=== PATIENT | female | born 1945 | race Caucasian/White ===

== ENCOUNTER 2018-03-17 20:08 | Inpatient (IN) | payer OTHER ==
[~2018-03-17] VITALS: Ht 165.1 cm; Wt 72.1 kg
[2018-03-18 00:15] VITALS: BP 147/88; PULSE 71; TEMP 36.5; O2SAT 96
[2018-03-18 00:25] VITALS: BP 147/88; PULSE 71; TEMP 36.5; Ht 165.1 cm; Wt 72.1 kg
[2018-03-18] MEDS ORDERED: PANT40TA PO (00:58)
[2018-03-18] MEDS ORDERED: ERGO500037 PO (00:58)
[2018-03-18] MEDS ORDERED: OXYC-57 PO (00:58)
[2018-03-18] MEDS ORDERED: FAMO40TA6 PO (00:58)
[2018-03-18] MEDS ORDERED: LEVO50TA6 PO (00:58)
[2018-03-18] MEDS ORDERED: CYCL10TA6 PO (00:58)
[2018-03-18] MEDS ORDERED: ASPI81TA28 PO (00:58)
[2018-03-18] MEDS ORDERED: NORT25CA PO (00:58)
[2018-03-18] MEDS ORDERED: ADVIN25/60 INH (00:58)
[2018-03-18] MEDS ORDERED: GABA800T PO (00:58)
[2018-03-18] MEDS ORDERED: LISI-729 PO ×2 (00:58→12:45)
[2018-03-18] MEDS ORDERED: VNTHFA/IN INH (00:58)
[2018-03-18] MEDS ORDERED: MELO7.5T5 PO (00:58)
[2018-03-18] MEDS ORDERED: LORA-741 PO (00:58)
[2018-03-18] MEDS ORDERED: DULO60CA44 PO (00:58)
[2018-03-18] MEDS ORDERED: FLX10 (00:58)
[2018-03-18] MEDS ORDERED: MAGNESIUM HYDROXIDE SUSP 30 ML UDC PO PRN (01:45)
[2018-03-18] MEDS ORDERED: NITROGLYCERIN 0.4 MG SL PER TAB CHARGE SL PRN (01:45)
[2018-03-18] MEDS ORDERED: PHARMACIST DISCHARGE MED REC CONSULT PRN (01:45)
[2018-03-18] MEDS ORDERED: ONDANSETRON INJ 2 MG/ML 2 ML VIAL IV PRN (01:45)
[2018-03-18] MEDS ORDERED: ALBUTEROL HFA 8 GM INHALER INH PRN (01:45)
[2018-03-18] MEDS ORDERED: PATIENT'S ALLERGY INFO NEEDS ENTERED SCH (02:15)
[2018-03-18] MEDS ORDERED: ACETAMINOPHEN IV 100 ML IV PRN (02:30)
[2018-03-18] MEDS ORDERED: KETOROLAC TROMETHAMINE 15 MG/ML VIAL IV PRN (02:30)
[2018-03-18] MEDS ORDERED: PNEUMOCOCCAL POLYSACCHARIDES 25 MCG/0.5 ML VIAL/SYR IM. ONE (02:30)
[2018-03-18] MEDS ORDERED: PNEUMOCOCCAL ADMINISTRATION CHARGE ONE (02:30)
--- NOTE | 2018-03-18 02:33 | History and Physical ---
History & Physical Date & Time of Service: Mar 18, 2018 at 02:10 Chief Complaint: Cva, Generalized Weakness Primary Care Physician: No Doctor, Assigned History of Present Illness Source: patient, hospital records Patient is a 72 year old female with a past medical history of chronic lower back pain, hypertension, hypothyroidism, COPD, and anxiety that presents as a direct admission from [facility] for stroke evaluation. The patient was having complaints of confusion, lightheadedness, and dizziness this morning and was told to go to [facility] by her PCP. A CT Head revealed a questionable lacunar infarct and the patient was transferred to [facility] for further evaluation. The patient also states that she has been having blurriness of vision and this is new as well. At her baseline she states she experiences lots of stumbling and bumping into things at home. She denies any headache, diplopia, sensation of spinning, nausea, vomiting, shortness of breath, chest pain, abdominal pain. She states at baseline she has neuropathy in her lower extremities and this is unchanged. The patient was able to walk to her bed and to the bathroom on admission with no observed gait abnormalities. Past Medical/Surgical History Medical Problems: (1) Stroke Family History Noncontributory Social History Smoking Status: Current Every Day Smoker Smokeless Tobacco Use: No Alcohol Use: none Drug Use: none Occupational Status: retired Immunizations History of Influenza Vaccine: Unknown History of Tetanus Vaccine?: Unknown History of Pneumococcal: Unknown History of Hepatitis B Vaccine: Unknown Allergies Coded Allergies: No Known Allergies (Unverified , 03/18/18) Home Medications Scheduled Aspirin (Aspirin Ec), 81 MG PO DAILY Duloxetine Hcl (Cymbalta), 1 CAP PO DAILY Ergocalciferol (Vitamin D 14115 Unit), 1 CAP PO WK Fluticasone Prop/Salmeterol (Advair Diskus 250/50 60 Dose), 1 PUFFS INH BID Gabapentin (Neurontin), 800 MG PO TID Levothyroxine Sodium (Levothyroxine Sodium), 1 TAB PO DAILY Lisinopril (Zestril), 2.5 MG PO DAILY Meloxicam (Mobic), 15 MG PO DAILY Nortriptyline (Pamelor), 25 MG PO HS Pantoprazole (Protonix), 40 MG PO DAILY Scheduled PRN Albuterol Hfa (Ventolin Hfa), 2 PUFFS INH Q6H PRN for PRN Cyclobenzaprine Hcl (Flexeril), 1 TAB PO BID PRN for PRN Lorazepam (Ativan), 0.5 MG PO BID PRN for PRN Oxycodone/Acetaminophen 5MG/325MG (Percocet 5MG/325MG), 1 TABLET PO Q6H PRN for Pain Miscellaneous Medications Cyclobenzaprine HCl (Cyclobenzaprine HCl) Famotidine (Pepcid), 40 MG PO Review of Systems Constitutional: No fever, No chills, No sweats, No fatigue Respiratory: No cough, No sputum, No shortness of breath Cardiovascular: No chest pain Abdomen: No pain, No nausea, No vomiting, No diarrhea Musculoskeletal: + joint pain, No swelling, No calf pain Genitourinary - Female: No dysuria, No urinary frequency, No urinary urgency Neurologic: + weakness, + numbness/tingling, + balance problems, + problem reported (lightheadedness), No memory loss, No vertigo Endocrine: + fatigue Integumentary: No rash, No itch Physical Exam Vital Signs Date Time Temp Pulse Resp B/P (MAP) Pulse Ox O2 Delivery O2 Flow Rate FiO2 03/18/18 00:25 36.5 71 18 147/88 Room Air 96.0 General Appearance: WD/WN, no apparent distress Head: normocephalic, atraumatic Eyes: normal inspection, sclerae normal Neck: supple, no carotid bruits Respiratory/Chest: chest non-tender, lungs clear, no respiratory distress, no accessory muscle use, + decreased breath sounds Cardiovascular: regular rate, rhythm, no edema, no gallop Abdomen/GI: normal bowel sounds, non tender, soft Neurologic/Psych: japanese interpreter II-XII nml as tested, alert, normal mood/affect, oriented x 3, + pertinent finding (PERRL, CN 2-12 grossly intact, Negative pronator drive, No visible gait abnormalities, [id number] normal, overshoot with finger to nose of right hand, speech coherent, A&Ox3) Diagnostics Laboratory Results Results Past 24 Hours Test 03/18/18 00:55 03/18/18 01:45 Range/Units Bedside Glucose 85 70-90 mg/dl Diagnostic Radiology CT Head: 1. Possible small lacunar type infarct anterior limb of the right internal capsule 2. Probable mid microvascular chronic ischemic changes in the cerebral hemisphere white matter 3. 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 Possible small lacunar type infarct anterior limb of the right internal capsule 2. Probable mid microvascular chronic ischemic changes in the cerebral hemisphere white matter 3. No acute intracranial process observed on this unenhanced CT - MRI Brain Combo - CTA Head and Neck - Plavix - Atorvastatin 40mg - Fall Precautions - Neurochecks q4h - Neuro Consult - Lipid Panel - HbA1c Hypertension - Continue home Lisinopril Hypothyroidism - Continue home Synthroid Neuropathy/ Chronic Back Pain - Continue home Gabapentin and Cymbalta - Hold home Flexeril - Hold home Oxycodone - Hold home Meloxicam - IV Tylenol PRN for Pain, Toradol for breakthrough pain Anxiety - Hold home Ativan COPD - Continue home Advair and Albuterol GERD - Continue home Protonix and Pepcid DVT - SCDs Code Status - Full Code Attending addendum: I have physically seen this patient, have supervised the medical residents activities, and agree with the H&P unless as otherwise noted. Assessment and Plan: Small lacunar infarct right internal capsule anterior limb/noted on CT brain [facility]-- The patient will be admitted to telemetry for serial cardiac enzymes, serial EKG's, cardiac rhythm monitoring and a 2-D echocardiogram with Dopplers. Follow The patient will be admitted to telemetry for serial cardiac enzymes, cardiac rhythm monitoring and a 2-D echocardiogram with Dopplers. Follow CVA without TPA protocol. Order MRI brain combo. Order CTA Head and Neck Consult social research assistant, PT, OT, speech therapy, neurology. Check hemoglobin A1c and fasting lipid profile. Discontinue aspirin 81 mg by mouth daily. Start clopidogrel 75 mg p.o. daily. Remainder of orders and notes as noted above. Advanced Directives Existing Advance Directive: Yes Existing Living Will: No Existing Power of Servomechanism Designer: No Resuscitation Status Level 3 - No intubation VTE Prophylaxis Will order VTE Prophylaxis: Yes Resident Tracking Resident Involvement: Resident Care Provided Care Provided: [facility] Medicine
[2018-03-18] MEDS ORDERED: GADAVIST IV PRN (03:30)
[2018-03-18 03:35] VITALS: BP 148/94; PULSE 77; TEMP 36.4; O2SAT 95
[2018-03-18] MEDS: SODIUM CHLORIDE 0.9% 1000ML 1,000 ML IV SCH ×2 (04:02→13:00)
[2018-03-18] MEDS ORDERED: LEVOTHYROXINE 50 MCG TAB PO SCH (06:00)
--- NOTE | 2018-03-18 06:39 | DIAGNOSTIC IMAGING REPORT ---
BRAIN COMBO CLINICAL HISTORY: Stroke mental status change COMPARISON STUDY: No previous studies for comparison. TECHNIQUE: Utilizing a 1.5 Ava magnet and dedicated coil, multiplanar, multiecho imaging of the brain was performed pre and postcontrast administration. IV administration of 8.5 mL of Gadavist contrast was uneventful. FINDINGS: Diffusion-weighted images are negative for an acute ischemic event. Mild mucosal thickening right mastoid air cells. Signal characteristics of the cerebellar as well as cerebral hemispheres otherwise it demonstrate age-related chronic small vessel change as well as atrophy. Ventricular system is midline. Internal artery canals are symmetric. Sella and parasellar regions are unremarkable. Postcontrast images are considered negative for an enhancing lesion. IMPRESSION: Chronic and age-related change. No acute process. Mild mucosal thickening right mastoid air cells. The above report was generated using voice recognition software. It may contain grammatical, syntax or spelling errors. Electronically signed by: Allan Phelps M.D. 03/18/2018 6:38 AM Dictated Date/Time: 03/18/2018 6:34 AM
[2018-03-18 07:10] VITALS: BP 147/90; PULSE 73; TEMP 36.4; O2SAT 96
[2018-03-18 07:30] LABS: HEMOGLOBIN A1C 5.7 % (4.5-5.6)
[2018-03-18] MEDS: GABAPENTIN 800 MG TAB PO SCH ×2 (08:49→14:13)
[2018-03-18] MEDS ORDERED: DULOXETINE HCL 60 MG CAP PO SCH (09:00)
[2018-03-18] MEDS ORDERED: LISINOPRIL 5 MG TAB PO SCH (09:00)
[2018-03-18] MEDS ORDERED: FLUTICASONE/SALMETEROL 250/50 (ADVAIR) 14 PUFF/1 INHALER INH SCH (09:00)
[2018-03-18] MEDS ORDERED: FAMOTIDINE 20 MG TAB PO SCH (09:00)
[2018-03-18] MEDS ORDERED: CLOPIDOGREL BISULFATE 75 MG TAB PO SCH (09:00)
[2018-03-18] MEDS ORDERED: PANTOprazole SOD 40 MG TAB PO SCH (09:00)
[2018-03-18] MEDS ORDERED: ATORVASTATIN 40 MG TAB PO SCH (09:00)
--- NOTE | 2018-03-18 09:01 | ECHOCARDIOGRAM REPORT ---
*NOTICE TO RECEIVING [employer]Y This information is strictly Confidential and protected under [place] law. [place] law prohibits you from making any further disclosure of this information unless further disclosure is expressly permitted by the written consent of the person to whom it pertains or is authorized by law. A general authorization for the release of medical or other information is not sufficient for this purpose. Hospital accepts no responsibility if the information is made available to any other person, INCLUDING THE PATIENT. Interpretation Summary * Name: GERRY BENDER Study Date: 03/18/2018 07:12 AM BP: 148/94 mmHg * Patient Location: C.2T\S\S234\S\1 HR: 77 * : 1945 (M/d/yyyy) Gender: Female Height: 65 in * Age: 72 yrs Ethnicity: [place] Weight: 158 lb * Ordering Physician: Abdullahi Castillo * Performed By: Marium Barriga RDCS * * Reason For Study: Cerebral Ischemia/Embolus * BSA: 1.8 m2 * -- Conclusions -- * There is mild concentric left ventricular hypertrophy. * Left ventricular systolic function is moderate to severely reduced. * There are regional wall motion abnormalities as specified. * The right ventricular systolic function is reduced as assessed by tricuspid annular plane systolic excursion (TAPSE) (TAPSE <1.6 cm). * The left atrium is mildly dilated. * Mild aortic regurgitation. * There is mild mitral annular calcification. * There is moderate mitral regurgitation. * Injection of contrast documented no interatrial shunt. Procedure Details * A complete two-dimensional transthoracic echocardiogram was performed (2D, M-mode, Doppler and color flow Doppler). * A saline contrast injection was performed to assess for cardiac shunting. * The injection was performed through an intravenous line in the left arm. * The attending nurse who injected the saline contrast was Marge Hernandez RN. * A total of 10 cc of agitated saline was given. Left Ventricle * The left ventricle is grossly normal size. * There is mild concentric left ventricular hypertrophy. * Ejection Fraction = 30-35%. * Left ventricular systolic function is moderate to severely reduced. * There are regional wall motion abnormalities as specified. * Severe global hypokinesis with only mild inferior and septal hypokinesis. Right Ventricle * The right ventricle is not well visualized. * The right ventricular systolic function is reduced as assessed by tricuspid annular plane systolic excursion (TAPSE) (TAPSE <1.6 cm). Atria * The left atrium is mildly dilated. * Right atrial size is normal. * Injection of contrast documented no interatrial shunt. Mitral Valve * There is mild mitral annular calcification. * There is moderate mitral regurgitation. Tricuspid Valve * The tricuspid valve is not well visualized, but is grossly normal. * Significant tricuspid regurgitation is absent. Aortic Valve * The aortic valve is normal in structure and function. * The aortic valve is trileaflet. * No hemodynamically significant valvular aortic stenosis. * Mild aortic regurgitation. Pulmonic Valve * The pulmonic valve is not well visualized. * Trace pulmonic valvular regurgitation. Pericardium/Pleural * There is no pericardial effusion. MMode 2D Measurements and Calculations IVSd 1.4 cm IVSs 2.0 cm LVIDd 5.0 cm LVIDs 3.8 cm LVPWd 1.5 cm LVPWs 1.4 cm IVS/LVPW 0.93 FS 24.2 % EDV(Teich) 120.0 ml ESV(Teich) 62.5 ml EF(Teich) 47.9 % EDV(cubed) 127.4 ml ESV(cubed) 55.5 ml EF(cubed) 56.4 % % IVS thick 37.5 % % LVPW thick -8.19 % LV mass(C)d 320.8 grams LV mass(C)dI 179.3 grams/m\S\2 LV mass(C)s 264.2 grams LV mass(C)sI 147.7 grams/m\S\2 SV(Teich) 57.5 ml SI(Teich) 32.1 ml/m\S\2 SV(cubed) 71.9 ml SI(cubed) 40.2 ml/m\S\2 ACS 2.0 cm LA dimension 4.1 cm asc Aorta Diam 3.5 cm LVAd ap4 34.2 cm\S\2 LVLd ap4 8.1 cm EDV(MOD-sp4) 122.4 ml EDV(sp4-el) 122.0 ml LVAs ap4 23.9 cm\S\2 LVLs ap4 7.0 cm ESV(MOD-sp4) 68.0 ml ESV(sp4-el) 68.9 ml EF(MOD-sp4) 44.4 % EF(sp4-el) 43.5 % LVAd ap2 37.1 cm\S\2 LVLd ap2 8.3 cm EDV(MOD-sp2) 135.6 ml EDV(sp2-el) 139.9 ml LVAs ap2 23.9 cm\S\2 LVLs ap2 7.1 cm ESV(MOD-sp2) 65.9 ml ESV(sp2-el) 68.5 ml EF(MOD-sp2) 51.4 % EF(sp2-el) 51.0 % LVLd %diff 2.4 % EDV(MOD-bp) 130.3 ml LVLs %diff 0.63 % ESV(MOD-bp) 67.2 ml EF(MOD-bp) 48.4 % SV(MOD-sp4) 54.4 ml SI(MOD-sp4) 30.4 ml/m\S\2 SV(MOD-sp2) 69.7 ml SI(MOD-sp2) 38.9 ml/m\S\2 SV(MOD-bp) 63.1 ml SI(MOD-bp) 35.3 ml/m\S\2 SV(sp4-el) 53.0 ml SI(sp4-el) 29.6 ml/m\S\2 SV(sp2-el) 71.4 ml SI(sp2-el) 39.9 ml/m\S\2 Doppler Measurements and Calculations MV E max mray 98.9 cm/sec MV dec time 0.14 sec Ao V2 max 104.0 cm/sec Ao max PG 4.3 mmHg Ao max PG (full) 2.1 mmHg AI max mary 338.3 cm/sec AI max PG 45.8 mmHg AI dec slope 110.4 cm/sec\S\2 AI P1/2t 897.5 msec LV V1 max PG 2.2 mmHg LV V1 max 74.7 cm/sec MR max mary 481.4 cm/sec MR max PG 92.7 mmHg MR mean mary 322.5 cm/sec MR mean PG 50.3 mmHg MR VTI 206.0 cm MR PISA 2.0 cm\S\2 MR PISA radius 0.57 cm PA V2 max 71.0 cm/sec PA max PG 2.0 mmHg PI max mary 152.5 cm/sec PI max PG 9.3 mmHg PI dec slope 55.4 cm/sec\S\2 PI P1/2t 805.6 msec
--- NOTE | 2018-03-18 09:57 | Neurology Consultation ---
Neurology Consultation Date of Consultation: Mar 18, 2018. Attending Physician: Issac Black M.D. Primary Care Physician: Brandon Arce M.D. Reason for Consultation: Possible stroke identified at outside institution History of Present Illness Source: patient, hospital records The patient is a 72-year-old female who was transferred from [facility] for a stroke evaluation. She had called her primary care physician yesterday complaining of persistent lightheadedness and difficulty with balance. The patient was prompted to go immediately to the emergency department for further assessment. A CT of the head completed at [facility] suggested a possible lacunar infarct within the anterior limb of the right internal capsule. The patient was subsequently transferred to [facility] in the [facility] for a more extensive stroke evaluation. Upon further questioning of the patient this morning, the patient indicates that she has actually been experiencing a feeling of dizziness that occurs upon standing and an associated feeling of disequilibrium and poor balance which has been present for at least the past year. She does indicate that the dizziness improves within a few seconds of standing. The patient actually denies experiencing any recent or acute change in her neurological status but felt it was time to complain to her primary care physician regarding this issue. She denies headache, diplopia, vertigo, change in speech, difficulty swallowing, or focal weakness. She does have a history of polyneuropathy and some associated paresthesias. She is prescribed Cymbalta and Pamelor. Past medical history also notable for hypertension, COPD, chronic low back pain, history of bowel resection, and anxiety disorder. Family History Family history noncontributory. Social History Smokeless Tobacco Use: No Alcohol Use: none Drug Use: none Occupation Status: retired Allergies Coded Allergies: No Known Allergies (Unverified , 03/18/18) Current Inpatient Medications Current Inpatient Medications Medications (Trade) Dose Ordered Sig/Racquel Route Start Time Stop Time Status Last Admin Dose Admin Sodium Chloride 1,000 ml @ 100 mls/hr Q10H IV 03/18/18 03:00 04/17/18 02:59 03/18/18 04:02 100 MLS/HR Magnesium Hydroxide (Milk Of Magnesia Susp) 30 ml Q12H PRN PO 03/18/18 01:45 04/17/18 01:44 Ondansetron HCl (Zofran Inj) 4 mg Q6H PRN IV 03/18/18 01:45 8/11/18 01:44 Nitroglycerin (Nitrostat Tab) 0.4 mg UD PRN SL 03/18/18 01:45 04/17/18 01:44 Atorvastatin Calcium (Lipitor Tab) 40 mg QAM PO 03/18/18 09:00 04/17/18 08:59 03/18/18 08:50 40 MG Clopidogrel Bisulfate (plAVix TAB) 75 mg QAM PO 03/18/18 09:00 04/17/18 08:59 03/18/18 08:50 75 MG Miscellaneous Information (Pharmacist Discharge Med Rec Consult) 1 ea UD PRN N/A 03/18/18 01:45 04/17/18 01:44 Albuterol (Ventolin Hfa Inhaler) 2 puffs Q6H PRN INH 03/18/18 01:45 04/17/18 01:44 Duloxetine HCl (Cymbalta Cap) 60 mg DAILY PO 03/18/18 09:00 04/17/18 08:59 03/18/18 08:49 60 MG Famotidine (Pepcid Tab) 40 mg DAILY PO 03/18/18 09:00 04/17/18 08:59 03/18/18 08:50 40 MG Salmeterol Xinafoate/ Fluticasone (Advair Diskus 250/50 Inh) 2 puff BID INH 03/18/18 09:00 04/17/18 08:59 03/18/18 08:48 2 PUFF Gabapentin (Neurontin Tab) 800 mg TID PO 03/18/18 09:00 04/17/18 08:59 03/18/18 08:49 800 MG Levothyroxine Sodium (Synthroid Tab) 50 mcg DAILYBB PO 03/18/18 06:00 04/17/18 05:59 03/18/18 05:49 50 MCG Lisinopril (Zestril Tab) 2.5 mg DAILY PO 03/18/18 09:00 04/17/18 08:59 03/18/18 08:49 2.5 MG Nortriptyline HCl (Pamelor Cap) 25 mg HS PO 03/18/18 21:00 04/17/18 20:59 Pantoprazole Sodium (Protonix Tab) 40 mg DAILY PO 03/18/18 09:00 04/17/18 08:59 03/18/18 08:50 40 MG Acetaminophen 100 ml @ 400 mls/hr Q8H PRN IV 03/18/18 02:30 04/17/18 02:29 Ketorolac Tromethamine (Toradol Inj) 15 mg Q6H PRN IV 03/18/18 02:30 03/23/18 02:29 03/18/18 08:55 15 MG Gadobutrol (Gadavist) 7 mmol UD PRN IV 03/18/18 03:30 03/22/18 03:29 Review of Systems Constitutional: No fever chills Eyes: Patient has complained of some blurry vision, otherwise no diplopia or vision loss ENT: No vertigo or tinnitus Neurological: As per history of present illness Cardiovascular: No chest pain or palpitations Respiratory: No cough or shortness of breath Gastrointestinal: History of dumping syndrome, no complaints at this time Psychiatric: History of anxiety as described in the history of present illness A full 10 point review of systems was obtained from this patient with pertinent positives and negatives described in the history of present illness and otherwise listed above. All remaining systems were reviewed and are negative. Physical Exam Vital Signs (Past 24 Hrs): Date Time Temp Pulse Resp B/P (MAP) Pulse Ox O2 Delivery O2 Flow Rate FiO2 03/18/18 07:10 36.4 73 18 147/90 (109) 96 Room Air 03/18/18 03:35 36.4 77 20 148/94 (112) 95 Room Air 03/18/18 00:25 36.5 71 18 147/88 Room Air 96.0 03/18/18 00:15 36.5 71 18 147/88 (107) 96 Room Air 03/18/18 00:15 96 Room Air The patient is a well-developed, well-nourished elderly female. She is sitting comfortably in bed. If she is alert and fully oriented. Recent and remote memory intact. Patient exhibits a normal spontaneous speech pattern and age- appropriate fund of knowledge. Visual ortega full to confrontation. Visual acuity normal. Pupils equal round react to light and accommodation. Eye movements normal. There is no nystagmus. Facial sensation intact. There is no facial weakness or facial droop. Hearing intact. Palate elevates to midline. Shoulder shrug intact. Tongue protrudes to midline. There is a length- dependent deficit to all sensory modalities. Deep tendon reflexes are intact and symmetric although diminished at the Achilles tendons bilaterally. Plantar responses downgoing bilaterally. There is no dysdiadochokinesia or dysmetria of [id number] or heel to eisenberg. Ophthalmoscopic examination reveals normal- appearing optic discs and posterior segments. No papilledema or hemorrhages. Carotid pulses normal bilaterally, no bruits to auscultation. Gait and station normal. Patient exhibits normal muscle strength and tone for all 4 limbs. No atrophy. No abnormal movements observed. Laboratory Results Past 24 Hours: Test 03/18/18 00:55 03/18/18 06:33 03/18/18 09:06 Bedside Glucose 85 mg/dl (70-90) Estimated Average Glucose 117 mg/dl Hemoglobin A1c 5.7 % (4.5-5.6) Imaging I reviewed the images and radiologist's report pertaining to the recently completed brain MRI. This study is negative for acute or subacute stroke. There is evidence of chronic small vessel ischemic disease. Other data: Her recently completed echocardiogram reveals a reduced ejection fraction, 30-35 percent with regional wall motion abnormalities. Impression No evidence of acute or subacute stroke on recently completed brain MRI. Patient reports a history of chronic dizziness with an associated feeling of disequilibrium that has been present for at least the past year and typically triggered by standing up. Her clinical history is not really suggestive of a recent stroke. Chronic peripheral neuropathy of uncertain etiology, possibly related to borderline diabetes mellitus with a slightly elevated hemoglobin A1c. I am uncertain of the clinical significance of this patient's reduced ejection fraction on transthoracic echocardiogram in the context of her neurological assessment. There does not appear to be any evidence of cardioembolic stroke in this patient. Plan I have ordered an EEG for further assessment of her dizziness as there was also some mention of possible confusion although the patient is not really encephalopathic at this time. My clinical suspicion for subclinical seizures is low in this patient. Follow-up with results of CT angiography when available. There is not appear to be an indication to change this patient's antiplatelet therapy. However, Plavix 75 milligrams per day is reasonable for this patient. Additional outpatient evaluation of this patient's peripheral neuropathy may be warranted. Please contact me if I may be of further assistance.
[2018-03-18 10:48] VITALS: BP 150/91; PULSE 83; TEMP 36.7; O2SAT 95
--- NOTE | 2018-03-18 11:01 | EEG Procedure Note ---
EEG Procedure Note Date of Service Mar 18, 2018. Start / End Times Start Time: 9:48 a.m. End Time: 10:08 a.m. Referring Physician Toan Mcintosh MD History Episode of confusion Home Medication List Scheduled Aspirin (Aspirin Ec), 81 MG PO DAILY Duloxetine Hcl (Cymbalta), 1 CAP PO DAILY Ergocalciferol (Vitamin D 55380 Unit), 1 CAP PO WK Fluticasone Prop/Salmeterol (Advair Diskus 250/50 60 Dose), 1 PUFFS INH BID Gabapentin (Neurontin), 800 MG PO TID Levothyroxine Sodium (Levothyroxine Sodium), 1 TAB PO DAILY Lisinopril (Zestril), 2.5 MG PO DAILY Meloxicam (Mobic), 15 MG PO DAILY Nortriptyline (Pamelor), 25 MG PO HS Pantoprazole (Protonix), 40 MG PO DAILY Scheduled PRN Albuterol Hfa (Ventolin Hfa), 2 PUFFS INH Q6H PRN for PRN Cyclobenzaprine Hcl (Flexeril), 1 TAB PO BID PRN for PRN Lorazepam (Ativan), 0.5 MG PO BID PRN for PRN Oxycodone/Acetaminophen 5MG/325MG (Percocet 5MG/325MG), 1 TABLET PO Q6H PRN for Pain Miscellaneous Medications Cyclobenzaprine HCl (Cyclobenzaprine HCl) Famotidine (Pepcid), 40 MG PO Inpatient Medication List Current Inpatient Medications Medications (Trade) Dose Ordered Sig/Racquel Route Start Time Stop Time Status Last Admin Dose Admin Sodium Chloride 1,000 ml @ 100 mls/hr Q10H IV 03/18/18 03:00 04/17/18 02:59 03/18/18 04:02 100 MLS/HR Magnesium Hydroxide (Milk Of Magnesia Susp) 30 ml Q12H PRN PO 03/18/18 01:45 04/17/18 01:44 Ondansetron HCl (Zofran Inj) 4 mg Q6H PRN IV 03/18/18 01:45 04/17/18 01:44 Nitroglycerin (Nitrostat Tab) 0.4 mg UD PRN SL 03/18/18 01:45 04/17/18 01:44 Atorvastatin Calcium (Lipitor Tab) 40 mg QAM PO 03/18/18 09:00 04/17/18 08:59 03/18/18 08:50 40 MG Clopidogrel Bisulfate (plAVix TAB) 75 mg QAM PO 03/18/18 09:00 04/17/18 08:59 03/18/18 08:50 75 MG Miscellaneous Information (Pharmacist Discharge Med Rec Consult) 1 ea UD PRN N/A 03/18/18 01:45 04/17/18 01:44 Albuterol (Ventolin Hfa Inhaler) 2 puffs Q6H PRN INH 03/18/18 01:45 04/17/18 01:44 Duloxetine HCl (Cymbalta Cap) 60 mg DAILY PO 03/18/18 09:00 04/17/18 08:59 03/18/18 08:49 60 MG Famotidine (Pepcid Tab) 40 mg DAILY PO 03/18/18 09:00 04/17/18 08:59 03/18/18 08:50 40 MG Salmeterol Xinafoate/ Fluticasone (Advair Diskus 250/50 Inh) 2 puff BID INH 03/18/18 09:00 04/17/18 08:59 03/18/18 08:48 2 PUFF Gabapentin (Neurontin Tab) 800 mg TID PO 03/18/18 09:00 04/17/18 08:59 03/18/18 08:49 800 MG Levothyroxine Sodium (Synthroid Tab) 50 mcg DAILYBB PO 03/18/18 06:00 04/17/18 05:59 03/18/18 05:49 50 MCG Lisinopril (Zestril Tab) 2.5 mg DAILY PO 03/18/18 09:00 04/17/18 08:59 03/18/18 08:49 2.5 MG Nortriptyline HCl (Pamelor Cap) 25 mg HS PO 03/18/18 21:00 04/17/18 20:59 Pantoprazole Sodium (Protonix Tab) 40 mg DAILY PO 03/18/18 09:00 04/17/18 08:59 03/18/18 08:50 40 MG Acetaminophen 100 ml @ 400 mls/hr Q8H PRN IV 03/18/18 02:30 04/17/18 02:29 Ketorolac Tromethamine (Toradol Inj) 15 mg Q6H PRN IV 03/18/18 02:30 03/23/18 02:29 03/18/18 08:55 15 MG Gadobutrol (Gadavist) 7 mmol UD PRN IV 03/18/18 03:30 03/22/18 03:29 Description This is a 21 electrode EEG with a single channel dedicated to limited EKG. The electrodes were placed in accordance with the International 10-20 system. There is a posterior dominant rhythm of 8-9 hertz which is symmetrically distributed and attenuates with eye opening. There is a normal anterior to posterior organization. Photic stimulation is unremarkable. There is no focal slowing or persistent asymmetries in the background rhythm. No epileptiform abnormalities observed. Interpretation Normal awake EEG demonstrating a normal appearing background rhythm with a frequency of 8-9 hertz. Clinical Correlation This EEG does not provide supportive evidence of encephalopathy or seizure disorder. Further clinical correlation may be needed.
--- NOTE | 2018-03-18 11:59 | DIAGNOSTIC IMAGING REPORT ---
CT ANGIOGRAM OF THE NECK CLINICAL HISTORY: Strokelike symptoms. COMPARISON STUDY: No priors. TECHNIQUE: Following the IV administration of 92 of Optiray 320, CT angiogram of the neck was performed from the aortic arch to the skull base. Images are reviewed in the axial, sagittal, and coronal planes. 3-D MIPS images are created and assessed. IV contrast was administered without complication. All measurements were calculated based on NASCET criteria. A dose lowering technique was utilized adhering to the principles of ALARA. CT DOSE: 438.61 mGy.cm FINDINGS: Thoracic aorta: There is mild atherosclerotic calcification of the imaged thoracic aorta. Visualized portions of the thoracic aorta are normal in caliber. The aortic arch demonstrates standard 3-vessel anatomy. Right carotid arterial system: The right common carotid artery is widely patent, as are the internal and external carotid arteries. Left carotid arterial system: The left common carotid artery is widely patent, as are the internal and external carotid arteries. Vertebral arteries: The vertebral arteries are widely patent bilaterally. The left vertebral artery is dominant. Subclavian arteries: Widely patent bilaterally. Intracranial vasculature: The partially visualized intracranial vessels at the skull base are patent. Jugular veins: Widely patent bilaterally. Brain parenchyma: The visualized brain parenchyma the skull base is within normal limits. Lung apices: Mild emphysematous change is seen at the lung apices. The imaged upper lobe lung parenchyma appears clear. Soft tissues: The visualized pharyngeal soft tissues are normal in appearance noting angiographic phase technique. The oropharyngeal airway appears widely patent. There is a 12 mm low-attenuation nodule in the right thyroid lobe. The salivary glands are normal in appearance. No cervical lymphadenopathy is seen. Skeletal structures: The skeletal structures are osteopenic. The visualized calvarium at the skull base appears intact. The imaged cervical spine is within normal limits noting multilevel spondylosis. IMPRESSION: 1. Unremarkable CT angiogram of the neck. 2. Emphysema. 3. There is a 12 mm low-attenuation nodule in the right thyroid lobe. Follow-up with a nonemergent thyroid ultrasound is recommended. Electronically signed by: Clark Kaur M.D. 03/18/2018 11:58 AM Dictated Date/Time: 03/18/2018 11:53 AM
--- NOTE | 2018-03-18 11:59 | DIAGNOSTIC IMAGING REPORT ---
HEAD ANGIO WITH CONTRAST CLINICAL HISTORY: Stroke Mental status change TECHNIQUE: Transaxial acquisition with multi axial reformatted images COMPARISON STUDY: None FINDINGS: All major structures of the crow of Beck are unremarkable. The vertebral basilar system is unremarkable. Structures anterior middle and posterior cerebral circulation are intact. No major stenotic process or aneurysmal distention is seen. IMPRESSION: Negative study The above report was generated using voice recognition software. It may contain grammatical, syntax or spelling errors. Electronically signed by: Allan Phelps M.D. 03/18/2018 11:58 AM Dictated Date/Time: 03/18/2018 11:52 AM
[2018-03-18] MEDS ORDERED: OPTIRAY 320 IV PRN (12:00)
--- NOTE | 2018-03-18 12:47 | Discharge Instructions ---
Discharge Instructions Date of Service Mar 18, 2018. Admission Reason for Admission: Cva, Generalized Weakness Discharge Discharge Diagnosis / Problem: dizziness, stroke ruled out Discharge Goals Goal(s): Diagnostic testing, Therapeutic intervention Activity Recommendations Activity Limitations: as noted below Lifting Limitations: gradually increase as tolerated . 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 Who to Call and When: Medical Emergencies: If at any time you feel your situation is an emergency, please call 911 immediately. . Non-Emergent Contact Non-Emergency issues call your: Primary Care Provider, Rd Project Manager Call Non-Emergent contact if: temperature is above 101, your pain is not controlled . . "Provider Documentation" section prepared by Patricio Sullivan. .
--- NOTE | 2018-03-18 13:00 | Discharge Summary ---
Discharge Summary Date of Service Mar 18, 2018. Discharge Summary Admission Date: Mar 18, 2018 at 00:31 Discharge Date: Mar 18, 2018 Discharge Disposition: Home Principal Diagnosis: dizziness, chronic systolic heart failure Immunizations: Have You Had Influenza Vaccine: Unknown History of Tetanus Vaccine?: Unknown History of Pneumococcal: Unknown History of Hepatitis B Vaccine: Unknown Medication Reconciliation Changed Medications: Lisinopril (Zestril) 5 Mg Tab 5 MG PO DAILY, #30 TAB 6 Refills (Changed from: 2.5 MG; Refills: ) Continued Medications: Albuterol Hfa (Ventolin Hfa) 200 Puffs/93326 Mcg Aers 2 PUFFS INH Q6H PRN for PRN, #1 INHALER Aspirin (Aspirin Ec) 81 Mg Tab 81 MG PO DAILY Cyclobenzaprine Hcl (Flexeril) 10 Mg Tab 1 TAB PO BID PRN for PRN for 30 Days, #60 TAB Cyclobenzaprine HCl (Cyclobenzaprine HCl) 10 Mg Tab Duloxetine Hcl (Cymbalta) 60 Mg Cap 1 CAP PO DAILY for 90 Days, #90 CAP 3 Refills Ergocalciferol (Vitamin D 97710 Unit) 50,000 Unit Cap 1 CAP PO WK for 28 Days, #4 CAP 5 Refills Famotidine (Pepcid) 40 Mg Tab 40 MG PO, TAB Fluticasone Prop/Salmeterol (Advair Diskus 250/50 60 Dose) 1 Ea Aerp 1 PUFFS INH BID for 90 Days, #3 INHALER 3 Refills Gabapentin (Neurontin) 800 Mg Tab 800 MG PO TID, TAB Levothyroxine Sodium (Levothyroxine Sodium) 50 Mcg Tab 1 TAB PO DAILY for 30 Days, #30 TAB 5 Refills Lorazepam (Ativan) 0.5 Mg Tab 0.5 MG PO BID PRN for PRN, TAB Meloxicam (Mobic) 7.5 Mg Tab 15 MG PO DAILY, TAB Nortriptyline (Pamelor) 25 Mg Cap 25 MG PO HS, CAP Oxycodone/Acetaminophen 5MG/325MG (Percocet 5MG/325MG) Tab 1 TABLET PO Q6H PRN for Pain, TAB PAIN Pantoprazole (Protonix) 40 Mg Tab 40 MG PO DAILY, #30 TAB Discharge Exam Review of Systems: Constitutional: + fever, + chills Respiratory: No cough, No sputum, No shortness of breath Cardiovascular: No chest pain, No orthopnea, No edema Psychiatric: No depression symptoms, No anhedonism Physical Exam: General Appearance: WD/WN, no apparent distress Eyes: normal inspection, sclerae normal Neck: supple, no JVD Respiratory/Chest: chest non-tender, lungs clear, normal breath sounds Cardiovascular: regular rate, rhythm, no murmur Abdomen / GI: normal bowel sounds, non tender, soft Neurologic/Psychiatric: alert, normal reflexes Skin: normal color, warm/dry Hospital Course 72 F transfer from outside hospital with CVA not qualifying for TPA, with a past medical history of chronic lower back pain, hypertension, hypothyroidism, COPD, 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), and anxiety that presents as a direct admission from [facility] for stroke evaluation, this was found to be unwarranted as MRI was negative for stroke and Neurology does not feel symptoms were TIA, incidentally was found to have chronic systolic heart failure and this may account for some symptoms Cerebrovascular Disease with CVA ruled out - CT Head at [facility] had shown possible small lacunar type infarct anterior limb of the right internal capsule - MRI Brain Combo however does not support this as an acute event - CTA Head and Neck, negative - continue aspirin for cad - Neuro Consult does not feel is tia, EEG is negative for seizure Chronic systolic heart failure seems euvolemic, will increase Acosta i and suggest cardiology follow up Hypertension increase Lisinopril for better blood pressure control Hypothyroidism clinically stable on Synthroid, nodule seen on CT, will recommend outpt follow up with u/s Neuropathy/ Chronic Back Pain Gabapentin and Cymbalta - Flexeril, Oxycodone, Meloxicam - IV Tylenol PRN for Pain, Toradol for breakthrough pain Anxiety- Ativan COPD Advair and Albuterol GERD Protonix and Pepcid Code Status - Full Code Total Time Spent: Greater than 30 minutes This includes examination of the patient, discharge planning, medication reconciliation, and communication with other providers. Discharge Instructions Please refer to the electronic Patient Visit Report (Discharge Instructions) for additional information.
[2018-03-18 13:46] VITALS: BP 150/91; PULSE 83; TEMP 36.7; O2SAT 95
[2018-03-18] MEDS ORDERED: NORTRIPTYLINE HCL 25 MG CAP PO SCH (21:00)
== END 2018-03-18 15:08 | disposition home or self-care (01) | DRG 293 ==
LOC: C.2T 03-18 00:31
PROVIDERS: ADMIT Hospitalist; ATTEND Internal Medicine
DX: I11.0 Hypertensive heart disease with heart failure (principal); I50.22 Chronic systolic (congestive) heart failure; E03.9 Hypothyroidism, unspecified; J44.9 Chronic obstructive pulmonary disease, unspecified; Z86.73 Personal history of transient ischemic attack (TIA), and cerebral infarction without residual deficits; F17.200 Nicotine dependence, unspecified, uncomplicated; Z79.82 Long term (current) use of aspirin; F41.9 Anxiety disorder, unspecified; G62.9 Polyneuropathy, unspecified

== ENCOUNTER 2022-06-26 02:30 | Observation (INO) ==
[2022-06-26] MEDS ORDERED: ONDANSETRON INJ 2 MG/ML 2 ML VIAL IV PRN ×2 (10:18→11:33)
--- NOTE | 2022-06-26 10:31 | History & Physical Report ---
Date of Service June 26, 2022 Assessment & Plan (1) SBO (small bowel obstruction): Plan: Multiple surgeries in the past with probable scar tissue causing obstruction. She is still having pain and intermittent nausea but no bilious vomiting. No need for NG tube immediately. Will obtain KUB and consult General Surgery. For now continue with pain medication as needed with attempt to try and avoid narcotics to prevent additional bowel slowing, antiemetics as needed and NPO with ice chips only. (2) Hypothyroidism: Plan: chronic, stable. Cont synthroid per home regimen. (3) COPD (chronic obstructive pulmonary disease): Plan: Lifelong smoker who is still actively smoking and is not interested in quitting at this time. Reports she stopped taking Advair on her own because she felt she was better and didn't need it. There is currently no wheezing and she appears stable. She declines nicotine patch. Smoking cessation advised. (4) Anxiety: Plan: chronic, controlled with Ativan twice daily. Confirmed this in PDMP. (5) GERD (gastroesophageal reflux disease): Plan: severe, she is prescribed omeprazole but doesn't take it. She prefers Pepcid 50mg twice daily. Otherwise stable. (6) DVT prophylaxis: Plan: Full Code confirmed with her on admission. Dispo- to home when able to tolerate PO. Patient is a recent and lives alone. Additionally, she reports taking Percocet regularly, but PDMP reveals she is not prescribed this so it was removed from her home medication list. Admission and Anticipated Discharge Date Admission Date: June 26, 2022 History of Present Illness Chief Complaint: Direct admission for partial SBO Primary Care Provider: Dimple Hicks, This is a 76-year-old female with PMH of COPD, chronic systolic heart failure, hypertension, hypothyroidism Abdominal pain started on since thursday where she had bloating in her abdomen and constipation. She developed severe pain and went to the ER on Thu but was sent home with antibiotics and report that she had a UTI. She denies any UTI symptoms and repeat UA was clear from 06/25 hospital records. Abdominal pain brought her back to the ER yesterday. Pain is generalized but mostly on the left and has a burning quality. Took laxatives yesterday, finally had a BM today and there was pain associated with it. Stool was black in color. Nausea and dry heaving two days ago. She hasn't eaten since Thursday. She denies fevers and reports chills and a dry cough that seems to have resolved. Today she is hungry but still has abdominal pain. She still gets nausea but has not been actively vomiting. Allergies Allergy/AdvReac Type Severity Reaction Status Date / Time No Known Allergies Allergy Unverified 03/18/18 02:23 Home Medications Medication Instructions Recorded Confirmed Type CYCLOBENZAPRINE HCL (FLEXERIL) 10 mg PO BID PRN PRN 30 days #60 03/18/18 06/26/22 History tabs DULOXETINE HCL (CYMBALTA) 60 mg PO DAILY 90 days #90 caps 03/18/18 06/26/22 History ERGOCALCIFEROL (VITAMIN D 42517 1 cap PO JACOB@0900 28 days #4 caps 03/18/18 06/26/22 History UNIT) Famotidine (Pepcid) 40 mg PO BID #0 tabs 03/18/18 06/26/22 History Gabapentin (Neurontin) 800 mg PO TID #0 tabs 03/18/18 06/26/22 History LEVOTHYROXINE SODIUM 50 mcg PO DAILYBB 30 days #30 tabs 03/18/18 06/26/22 History LORAZEPAM (ATIVAN) 0.5 mg PO BID PRN PRN #0 tabs 03/18/18 06/26/22 History Meloxicam (Mobic) 15 mg PO DAILY #0 tabs 03/18/18 06/26/22 History ferrous sulfate 325 mg (65 mg 325 mg PO BID 06/26/22 06/26/22 History iron) tablet (FeroSul) furosemide 40 mg tablet (Lasix) 40 mg PO DAILY PRN SWELLING 06/26/22 06/26/22 History rosuvastatin 20 mg tablet 20 mg PO DAILY 06/26/22 06/26/22 History Past Med/Surg History Medical History (Updated 06/26/22 @ 11:40 by Bushra Hewitt DO) Anemia Anxiety BPPV (benign paroxysmal positional vertigo) Chronic systolic (congestive) heart failure COPD (chronic obstructive pulmonary disease) Dyslipidemia GERD (gastroesophageal reflux disease) History of hepatitis C Hypertension Hypothyroidism Osteoporosis Seasonal allergic rhinitis Surgical History History of partial gastrectomy S/P appy S/P cholecystectomy Status post hernia repair Family History Father Myocardial infarction Sister Brain hemorrhage due to vascular malformation Brother Cancer Mother Cancer Social History Smoking Status: Current every day smoker Tobacco Type: Cigarettes Cigarettes Per Day: 20; Hx Alcohol Use: No (h/o heavy drinking, quit 17 yrs ago) Hx Substance Use: No Preferred Language: [place]ill[place] marital status: / Current Living Situation: Alone current occupational status: retired Review of Systems Review of Systems: All systems were reviewed and negative except as indicated in HPI above. Physical Exam Physical Exam: CONSTITUTIONAL: thin, vitals as above, generally well- appearing, NAD EYES: pupils are round, dilated and equal and reactive bilaterally, normal conjunctivae, no scleral icterus ENT: external ear and nose normal, oropharynx clear NECK: trachea midline RESPIRATORY: clear to auscultation bilaterally, no crackles, rales or wheezes, normal respiratory effort CARDIOVASCULAR: regular rate and rhythm, S1 and 2 heard without murmurs, gallop s or rubs, no JVD, no peripheral edema GASTROINTESTINAL: hypoactive BS, soft, diffusely TTP, +guarding. MUSCULOSKELETAL: strength 5/5 throughout, head is normocephalic and atraumatic SKIN: warm and dry NEUROLOGIC: CN 2-12 grossly intact, no sensory deficit, normal cognition, normal speech, no tremor PSYCHIATRIC: alert cooperative and oriented to person, place and time. Results & Data Results & Data ([facility]) Laboratory Results Short CBC 06/26/22 Range/Units 10:29 WBC 6.08 (4.8-10.8) K/ul Hgb 12.8 (12.0-16.0) g/dl Hct 37.3 (34.1-44.9) % Plt Count 199 (130-400) K/uL BMP 06/26/22 10:29 Sodium 137 Potassium 3.4 L Chloride 107 Carbon Dioxide 23 BUN 16 Creatinine 0.75 Glucose 78 Calcium 8.1 L Liver Function 06/26/22 Range/Units 10:29 Total Bilirubin 0.5 (0.2-1.0) mg/dl AST 23 (13-39) U/L ALT 13 (7-52) U/L Alkaline Phosphatase 70 (34-104) U/L Albumin 2.9 L (3.4-5.0) gm/dl Code Status & VTE Plan VTE Prophylaxis Plan VTE Prophylaxis will be ordered: Yes
[2022-06-26 10:44] LABS: Basophils % (auto) 1.6 %; Eosinophils # (auto) 0.27 K/uL (0-0.50); Eosinophils % (auto) 4.4 %; Hematocrit (blood only) 37.3 % (34.1-44.9); Hemoglobin 12.8 g/dl (12.0-16.0); Immature Granulocytes # (auto) 0.01 K/uL (0.00-0.02); Immature Granulocytes % (auto) 0.2 %; Lymphocytes # (auto) 1.16 K/uL (1.2-3.4); Lymphocytes % (auto) 19.1 %; Mean Corpuscular Hemoglobin 32.7 pg (25.0-34.0); Mean Corpuscular Hgb Conc 34.3 g/dL (32.0-36.0); Mean Corpuscular Volume 95.4 fL (80.0-100.0); Mean Platelet Volume 10.4 fL (9.4-12.3); Monocytes # (auto) 0.48 K/uL (0.24-0.82); Monocytes % (auto) 7.9 %; Neutrophils # (auto) 4.06 K/uL (1.4-6.5); Neutrophils % (auto) 66.8 %; Platelet Count 199 K/uL (130-400); RDW Coefficient of Variation 13.6 % (11.5-14.5); RDW Standard Deviation 47.8 fL (36.4-46.3); Red Blood Count 3.91 M/uL (3.93-5.22); White Blood Count 6.08 K/ul (4.8-10.8)
[2022-06-26 11:11] LABS: Alanine Aminotransferase 13 U/L (7-52); Albumin Globulin Ratio 1.1 (0.9-2); Albumin Level 2.9 gm/dl (3.4-5.0); Alkaline Phosphatase 70 U/L (34-104); Anion Gap 7 (3-11); Aspartate Aminotransferase 23 U/L (13-39); BUN Creatinine Ratio 21.3 (10-20); Bilirubin,Total 0.5 mg/dl (0.2-1.0); Blood Urea Nitrogen 16 mg/dl (6-23); Calcium 8.1 mg/dl (8.5-10.1); Carbon Dioxide 23 mmol/L (21-32); Chloride 107 mmol/L (98-107); Est GFR (African American) 89.7 ml/min; Est GFR (Non-African American) 77.4 ml/min; Globulin 2.7 gm/dl (2.5-4.0); Glucose 78 mg/dl (70-99(Fasting)); Potassium 3.4 mmol/L (3.5-5.1); Sodium 137 mmol/L (136-145); Total Protein 5.6 gm/dl (6.0-8.3)
--- NOTE | 2022-06-26 12:24 | XRay Report ---
XR chest 1V portable HISTORY: 76 years-old Female cough, smoker acute cough COMPARISON: KUB of same day, chest radiograph 06/25/2022 TECHNIQUE: AP view of the chest FINDINGS: Cardiac silhouette is enlarged. Loop recorder device. No pneumothorax, large pleural effusion or loba r airspace consolidation. Chronic interstitial coarsening of the lung bases. Degenerative changes of the shoulders and spine. IMPRESSION: Cardiomegaly without acute process. ACT 112: Negative or not required by law. The above report was generated using voice recognition software. It may contain grammatical, syntax o r spelling errors. Electronically signed by: Abdullahi Nino M.D. 06/26/2022 12:22 PM
--- NOTE | 2022-06-26 12:33 | Surgery Consultation ---
Date of Consultation June 26, 2022 Assessment & Plan (1) SBO (small bowel obstruction): Plan 76-year-old female with history of multiple abdominal surgeries initially presented to [facility] emergency room on 06/21/2022 with complaint of abdominal pain and then again on 06/25/2022 with persistent abdominal pain. She had a CT scan of the abdomen and pelvis showing partial small bowel obstruction. She was transferred to [facility] for further management as there was no s urgeon available at [facility] if she were to need any surgical intervention. KUB today is pending. She states she had a bowel movement this morning but still having some cramping abdominal pain. Abdominal exam is soft with tenderness in the left abdomen. No peritonitis, rigidity or guarding. Plan: No acute surgical intervention required at this time. Would continue conservative measures with bowel rest, IV fluids, pain management as needed, antiemetics as needed. Encourage patient to get out of bed to chair and ambulate to help GI motility. If she has not passed gas by tomorrow would order a small bowel follow-through to further evaluate. She would likely need bowel regimen given her constipation for the last 4 weeks. Continue current medical management Dr. King has seen and examined patient, please see addendum for further recommendation/plan. Supervising Physician Co-Signing Physician Notes I have seen and examined the patient personally and agree with the above assessment plan. This is a transfer patient from an outside hospital which was affected without any input from surgery. She has extensive medical and surgical history. She is had at least 8-10 abdominal surgeries including multiple mesh hernia repairs following a partial gastrectomy and small bowel resection for ulcer disease in the past. She is a CT scan demonstrating what appears to be a partial small bowel obstruction. She did have a bowel movement this morning. She is not in extremis. Thirty not seem to be any surgical indications at this time. We will observe her for now with bowel rest and IV fluid resuscitation. If she would need surgery, she would most likely need to be transferred to a tertiary care center given the extensive medical and surgical history. We will observe for now with serial exams. History of Present Illness Reason for Consultation: SBO Requesting Physician: Bushra Hewitt DO Attending Physician: Bushra Hewitt DO History of Present Illness Marie is a 76 year-old female who was transferred from [facility] for partial SBO. She states she started having some abdominal discomfort and issues with bowel movements 4 weeks ago. States on Thursday she had abdominal pain and presented to ED and told she had UTI. Pain persisted and presented back to [facility] ED yesterday and had a CT scan of abdomen and pelvis showing partial sbo as well as some mild to moderate free fluid. She states she has had a bowel movement this morning which hurt and looked dark in nature but is feeling slightly better since that bowel movement. She has had multiple abdominal surgeries including appendectomy, partial gastrectomy and small bowel resection for bleeding peptic ulcer, open cholecystectomy, abdominal hernia repair with mesh and complications of mesh. Last colonoscopy was a few years ago. Polyps seen. Not on a regular bowel regimen. Allergies Allergy/AdvReac Type Severity Reaction Status Date / Time No Known Allergies Allergy Unverified 03/18/18 02:23 Home Medications Medication Instructions Recorded Confirmed Type cyclobenzaprine 10 mg tablet 10 mg PO BID PRN muscle spasm 06/26/22 06/26/22 History duloxetine 60 mg capsule,delayed 60 mg PO DAILY 06/26/22 06/26/22 History release ergocalciferol (vitamin D2) 1,250 50,000 unit PO JACOB@0900 06/26/22 06/26/22 History mcg (50,000 unit) capsule (Vitamin D2) famotidine 40 mg tablet 40 mg PO BID 06/26/22 06/26/22 History ferrous sulfate 325 mg (65 mg 325 mg PO BID 06/26/22 06/26/22 History iron) tablet (FeroSul) furosemide 40 mg tablet (Lasix) 40 mg PO DAILY PRN SWELLING 06/26/22 06/26/22 History gabapentin 800 mg tablet 800 mg PO TID 06/26/22 06/26/22 History levothyroxine 50 mcg tablet 50 mcg PO DAILYBB 06/26/22 06/26/22 History lorazepam 0.5 mg tablet 0.5 mg PO BID PRN Anxiety 06/26/22 06/26/22 History rosuvastatin 20 mg tablet 20 mg PO DAILY 06/26/22 06/26/22 History Patient History Medical History (Updated 06/26/22 @ 11:40 by Bushra Hewitt DO) Anemia Anxiety BPPV (benign paroxysmal positional vertigo) Chronic systolic (congestive) heart failure COPD (chronic obstructive pulmonary disease) Dyslipidemia GERD (gastroesophageal reflux disease) History of hepatitis C Hypertension Hypothyroidism Osteoporosis Seasonal allergic rhinitis Surgical History History of partial gastrectomy S/P appy S/P cholecystectomy Status post hernia repair Family History Father Myocardial infarction Sister Brain hemorrhage due to vascular malformation Brother Cancer Mother Cancer Social History Smoking Status: Current every day smoker Tobacco Type: Cigarettes Cigarettes Per Day: 20; Hx Alcohol Use: No (h/o heavy drinking, quit 17 yrs ago) Hx Substance Use: No Preferred Language: Iraqi Release Specialist Required: No Beliefs That Will Affect Care: None marital status: / Current Living Situation: Alone current occupational status: retired Feels Safe at Home: Yes Assistive Devices: Cane Physical Exam Constitutional: WD/WN, vitals as above cooperative and comfortable; no acute distress and not ill appearing Neck: normal visual inspection and trachea midline Respiratory: normal respiratory effort, lungs clear to auscultation Gastrointestinal (Abdomen): Inspection/Auscultation: abdomen normal to insp ection and + abdominal surgical scar (midline laparotomy scar); abdomen not distended Percussion/Palpation: + abdomen tender (left abdomen, mostly upper abdomen) and abdomen soft; no guarding and abdomen not rigid Skin: no rashes, warm and dry Psychiatric: A+Ox3, euthymic affect Results & Data ([facility]) Vital Signs (Past 12 Hours) Vital Signs Temp Pulse Resp BP Pulse Ox O2 Del Method 06/26/22 10:00 36.6 C 84 18 122/76 97 Room Air Laboratory Results 06/26/22 06/26/22 06/26/22 Range/Units 11:50 10:29 10:29 WBC 6.08 (4.8-10.8) K/ul RBC 3.91 L (3.93-5.22) M/uL Hgb 12.8 (12.0-16.0) g/dl Hct 37.3 (34.1-44.9) % MCV 95.4 (80.0-100.0) fL MCH 32.7 (25.0-34.0) pg MCHC 34.3 (32.0-36.0) g/dL RDW Std Deviation 47.8 H (36.4-46.3) fL RDW Coeff of Lindsey 13.6 (11.5-14.5) % Plt Count 199 (130-400) K/uL MPV 10.4 (9.4-12.3) fL Immature Gran % (Auto) 0.2 % Neut % (Auto) 66.8 % Lymph % (Auto) 19.1 % [place] % (Auto) 7.9 % Eos % (Auto) 4.4 % Baso % (Auto) 1.6 % Neut # (Auto) 4.06 (1.4-6.5) K/uL Lymph # (Auto) 1.16 L (1.2-3.4) K/uL [place] # (Auto) 0.48 (0.24-0.82) K/uL Eos # (Auto) 0.27 (0-0.50) K/uL Baso # (Auto) 0.10 (0-0.2) K/uL Immature Gran # (Auto) 0.01 (0.00-0.02) K/uL Sodium 137 (136-145) mmol/L Potassium 3.4 L (3.5-5.1) mmol/L Chloride 107 (98-107) mmol/L Carbon Dioxide 23 (21-32) mmol/L Anion Gap 7 (3-11) BUN 16 (6-23) mg/dl Creatinine 0.75 (0.6-1.2) mg/dl Est Cr Clr Drug Dosing Not Reportable Est GFR ( Amer) 89.7 ml/min Est GFR (Non-Af Amer) 77.4 ml/min BUN/Creatinine Ratio 21.3 H (10-20) Glucose 78 (70-99(Fasting)) mg/dl Calcium 8.1 L (8.5-10.1) mg/dl Total Bilirubin 0.5 (0.2-1.0) mg/dl AST 23 (13-39) U/L ALT 13 (7-52) U/L Alkaline Phosphatase 70 (34-104) U/L Total Protein 5.6 L (6.0-8.3) gm/dl Albumin 2.9 L (3.4-5.0) gm/dl Globulin 2.7 (2.5-4.0) gm/dl Albumin/Globulin Ratio 1.1 (0.9-2) SARS-CoV-2, RNA, NAAT Pending Diagnostic Findings Outpatient CT abd/pelvis with IV contrast 06/25/[address] scan of abdomen pelvis with contrast at [facility] showed dilatation of the small bowel with probable transition point identified in the midepigastrium. Small to moderate amount of free fluid in the abdomen and pelvis increased since prior CTA on 06/21/2022. There is some fecalization within the small bowel loop at the level of the transition point.
--- NOTE | 2022-06-26 13:06 | XRay Report ---
KUB HISTORY: Small bowel obstruction. Follow-up. COMPARISON: Outside hospital abdomen and pelvis CT 06/25/2022. FINDINGS: Mildly dilated gas-filled loop of small bowel within the midabdomen. No renal calculi. No ureteral calculi. No pneumoperitoneum or pneumatosis. Surgical clips within the epigastric region. Th e visualized lung bases appear clear. Contrast within the urinary system due to the recent CT examina tion. IMPRESSION: No change in the mildly dilated gas-filled loop of small bowel within the midabdomen likely correspon ding to the patient's known small bowel obstruction. ACT 112: Negative or not required by law. Electronically signed by: Freddy Vazquez M.D. 06/26/2022 1:04 PM
[2022-06-26] MEDS: SODIUM CHLORIDE 0.9% 1000ML 1,000 ML IV SCH (13:48)
[2022-06-26] MEDS ORDERED: CYCLOBENZAPRINE HCL 10 MG TAB PO PRN (14:21)
[2022-06-26] MEDS ORDERED: PNEUMOCOCCAL POLYSACCHARIDES 25 MCG/0.5 ML VIAL/SYR IM ONE (14:51)
--- NOTE | 2022-06-26 15:00 | Electrocardiogram Report ---
Test Reason : Blood Pressure : / mmHG Vent. Rate : 084 BPM Atrial Rate : 084 BPM P-R Int : 208 ms QRS Dur : 162 ms QT Int : 478 ms P-R-T Axes : 000 -28 -16 degrees QTc Int : 564 ms Normal sinus rhythm Right bundle branch block Abnormal ECG No previous ECGs available Confirmed by Eddie Medrano ([id number]) on 06/26/2022 3:00:23 PM Referred By: Vinh Jones Confirmed By:Eddie Medrano
[2022-06-26] MEDS: GABAPENTIN 800 MG TAB PO SCH ×2 (15:22→20:00)
[2022-06-26] MEDS: ACETAMINOPHEN 325 MG TAB PO PRN (18:44)
[2022-06-26] MEDS: LORazepam 0.5 MG TAB PO PRN (18:47)
[2022-06-26] MEDS: FAMOTIDINE 40 MG TABLET PO SCH (20:00)
[2022-06-26] MEDS: NICOTINE 21 MG/24 HR TDSY TD SCH (21:40)
[2022-06-27] MEDS: SODIUM CHLORIDE 0.9% 1000ML 1,000 ML IV SCH (02:22)
[2022-06-27] MEDS: LEVOTHYROXINE SODIUM 50 MCG TABLET PO SCH (06:02)
[2022-06-27] MEDS: ACETAMINOPHEN 325 MG TAB PO PRN (08:41)
[2022-06-27] MEDS: LORazepam 0.5 MG TAB PO PRN ×2 (08:42→20:18)
[2022-06-27] MEDS: ROSUVASTATIN CALCIUM 20 MG TAB PO SCH (08:43)
[2022-06-27] MEDS: DULoxetine HCL 60 MG CAP PO SCH (08:43)
[2022-06-27] MEDS: FAMOTIDINE 40 MG TABLET PO SCH ×2 (08:43→20:18)
[2022-06-27] MEDS: GABAPENTIN 800 MG TAB PO SCH ×3 (08:43→20:18)
[2022-06-27] MEDS: NICOTINE 21 MG/24 HR TDSY TD SCH (08:43)
[2022-06-27] MEDS ORDERED: MoRPHine SULFATE 2 MG/ML CARP IV STA (08:51)
[2022-06-27 09:44] LABS: Basophils % (auto) 1.7 %; Eosinophils # (auto) 0.22 K/uL (0-0.50); Eosinophils % (auto) 3.8 %; Hematocrit (blood only) 36.6 % (34.1-44.9); Hemoglobin 12.4 g/dl (12.0-16.0); Immature Granulocytes # (auto) 0.02 K/uL (0.00-0.02); Immature Granulocytes % (auto) 0.3 %; Lymphocytes # (auto) 1.26 K/uL (1.2-3.4); Lymphocytes % (auto) 21.7 %; Mean Corpuscular Hemoglobin 32.6 pg (25.0-34.0); Mean Corpuscular Hgb Conc 33.9 g/dL (32.0-36.0); Mean Corpuscular Volume 96.3 fL (80.0-100.0); Mean Platelet Volume 10.6 fL (9.4-12.3); Monocytes # (auto) 0.35 K/uL (0.24-0.82); Neutrophils # (auto) 3.85 K/uL (1.4-6.5); Neutrophils % (auto) 66.5 %; Platelet Count 189 K/uL (130-400); RDW Coefficient of Variation 13.6 % (11.5-14.5); RDW Standard Deviation 48.4 fL (36.4-46.3)
--- NOTE | 2022-06-27 10:02 | Surgery Progress Note ---
Date of Service June 27, 2022 Assessment & Plan (1) SBO (small bowel obstruction): Plan 76-year-old female with history of multiple abdominal surgeries initially presented to [facility] emergency room on 06/21/2022 with complaint of abdominal pain and then again on 06/25/2022 with persistent abdominal pain. She had a CT scan of the abdomen and pelvis showing partial small bowel obstruction. She was transferred to [facility] for further management as there was no surgeon available at [facility] if she were to need any surgical intervention. 06/27/2022: having abdominal pain, not acute distress and hemodynamically stable but looks uncomfortable exam without peritonitis but some voluntary guarding only small amount of flatus this am Plan: Stat labs including lactic acid stat KUB await results of labs and imaging, if wnl will order SBFT. She might need bowel regimen given constipation and this could be causing her abdominal cramping pain as well If lactic acid elevated or her pain increases and is uncontrolled she would need transferred to tertiary center given her complex abdominal surgical history including partial gastrectomy and small bowel resection, hernia repair with large mesh and mesh complications. Dr. Mota covering this weekend Dr. King has seen and examined patient, agrees with above Admission and Anticipated Discharge Date Admission Date: June 26, 2022 Supervising Physician Co-Signing Physician Notes I have seen and examined the patient personally and agree with the above assessment and plan. She is having some more pain this morning. Her labs are normal. Lactic acid is normal. We will obtain an upper GI with small-bowel follow-through. Continue conservative measures for now. Subjective States she is not feeling well this morning Having abdominal cramping pain similar to prior episodes Past small little flatus about an hour ago No bowel movement Physical Exam Constitutional: + frail appearing; no acute distress and not ill appearing She is not in any acute distress but does look uncomfortable at this time due to pain. Nurse is about ready to administer morphine upon examination. Respiratory: normal respiratory effort; no respiratory distress Gastrointestinal (Abdomen): Inspection/Auscultation: abdomen normal to inspection; abdomen not distended Percussion/Palpation: + abdomen tender, + guarding (Voluntary guarding of the upper abdomen, No peritonitis) and abdomen soft; abdomen not rigid and abdomen not firm Skin: no rashes, warm and dry Psychiatric: Orientation: alert and oriented x 3 Results & Data ([facility]) Vital Signs (Past 12 Hours) Vital Signs Temp Pulse Resp BP Pulse Ox O2 Del Method 06/27/22 08:19 36.4 C L 85 18 133/76 98 Room Air Laboratory Results 06/27/22 06/27/22 06/27/22 Range/Units 09:12 09:12 09:12 WBC 5.80 (4.8-10.8) K/ul RBC 3.80 L (3.93-5.22) M/uL Hgb 12.4 (12.0-16.0) g/dl Hct 36.6 (34.1-44.9) % MCV 96.3 (80.0-100.0) fL MCH 32.6 (25.0-34.0) pg MCHC 33.9 (32.0-36.0) g/dL RDW Std Deviation 48.4 H (36.4-46.3) fL RDW Coeff of [place] 13.6 (11.5-14.5) % Plt Count 189 (130-400) K/uL MPV 10.6 (9.4-12.3) fL Immature Gran % (Auto) 0.3 % Neut % (Auto) 66.5 % Lymph % (Auto) 21.7 % [place] % (Auto) 6.0 % Eos % (Auto) 3.8 % Baso % (Auto) 1.7 % Neut # (Auto) 3.85 (1.4-6.5) K/uL Lymph # (Auto) 1.26 (1.2-3.4) K/uL [place] # (Auto) 0.35 (0.24-0.82) K/uL Eos # (Auto) 0.22 (0-0.50) K/uL Baso # (Auto) 0.10 (0-0.2) K/uL Immature Gran # (Auto) 0.02 (0.00-0.02) K/uL Sodium Pending (136-145) mmol/L Potassium Pending (3.5-5.1) mmol/L Chloride Pending (98-107) mmol/L Carbon Dioxide Pending (21-32) mmol/L Anion Gap Pending (3-11) BUN Pending (6-23) mg/dl Creatinine Pending (0.6-1.2) mg/dl Est Cr Clr Drug Dosing Pending Est GFR ( Amer) Pending ml/min Est GFR (Non-Af Amer) Pending ml/min BUN/Creatinine Ratio Pending (10-20) Glucose Pending (70-99(Fasting)) mg/dl Lactate Pending (0.4-2.0) mmol/L Calcium Pending (8.5-10.1) mg/dl Total Bilirubin (0.2-1.0) mg/dl AST (13-39) U/L ALT (7-52) U/L Alkaline Phosphatase (34-104) U/L Total Protein (6.0-8.3) gm/dl Albumin (3.4-5.0) gm/dl Globulin (2.5-4.0) gm/dl Albumin/Globulin Ratio (0.9-2) SARS-CoV-2, RNA, NAAT (NEGATIVE) 06/26/22 06/26/22 06/26/22 Range/Units 13:56 11:50 10:29 WBC (4.8-10.8) K/ul RBC (3.93-5.22) M/uL Hgb (12.0-16.0) g/dl Hct (34.1-44.9) % MCV (80.0-100.0) fL MCH (25.0-34.0) pg MCHC (32.0-36.0) g/dL RDW Std Deviation (36.4-46.3) fL RDW Coeff of Lindsey (11.5-14.5) % Plt Count (130-400) K/uL MPV (9.4-12.3) fL Immature Gran % (Auto) % Neut % (Auto) % Lymph % (Auto) % [place] % (Auto) % Eos % (Auto) % Baso % (Auto) % Neut # (Auto) (1.4-6.5) K/uL Lymph # (Auto) (1.2-3.4) K/uL [place] # (Auto) (0.24-0.82) K/uL Eos # (Auto) (0-0.50) K/uL Baso # (Auto) (0-0.2) K/uL Immature Gran # (Auto) (0.00-0.02) K/uL Sodium 137 (136-145) mmol/L Potassium 3.4 L (3.5-5.1) mmol/L Chloride 107 (98-107) mmol/L Carbon Dioxide 23 (21-32) mmol/L Anion Gap 7 (3-11) BUN 16 (6-23) mg/dl Creatinine 0.75 (0.6-1.2) mg/dl Est Cr Clr Drug Dosing Not Reportable Est GFR ( Amer) 89.7 ml/min Est GFR (Non-Af Amer) 77.4 ml/min BUN/Creatinine Ratio 21.3 H (10-20) Glucose 78 (70-99(Fasting)) mg/dl Lactate 0.7 (0.4-2.0) mmol/L Calcium 8.1 L (8.5-10.1) mg/dl Total Bilirubin 0.5 (0.2-1.0) mg/dl AST 23 (13-39) U/L ALT 13 (7-52) U/L Alkaline Phosphatase 70 (34-104) U/L Total Protein 5.6 L (6.0-8.3) gm/dl Albumin 2.9 L (3.4-5.0) gm/dl Globulin 2.7 (2.5-4.0) gm/dl Albumin/Globulin Ratio 1.1 (0.9-2) SARS-CoV-2, RNA, NAAT NEGATIVE (NEGATIVE) 06/26/22 Range/Units 10:29 WBC 6.08 (4.8-10.8) K/ul RBC 3.91 L (3.93-5.22) M/uL Hgb 12.8 (12.0-16.0) g/dl Hct 37.3 (34.1-44.9) % MCV 95.4 (80.0-100.0) fL MCH 32.7 (25.0-34.0) pg MCHC 34.3 (32.0-36.0) g/dL RDW Std Deviation 47.8 H (36.4-46.3) fL RDW Coeff of [place] 13.6 (11.5-14.5) % Plt Count 199 (130-400) K/uL MPV 10.4 (9.4-12.3) fL Immature Gran % (Auto) 0.2 % Neut % (Auto) 66.8 % Lymph % (Auto) 19.1 % [place] % (Auto) 7.9 % Eos % (Auto) 4.4 % Baso % (Auto) 1.6 % Neut # (Auto) 4.06 (1.4-6.5) K/uL Lymph # (Auto) 1.16 L (1.2-3.4) K/uL [place] # (Auto) 0.48 (0.24-0.82) K/uL Eos # (Auto) 0.27 (0-0.50) K/uL Baso # (Auto) 0.10 (0-0.2) K/uL Immature Gran # (Auto) 0.01 (0.00-0.02) K/uL Sodium (136-145) mmol/L Potassium (3.5-5.1) mmol/L Chloride (98-107) mmol/L Carbon Dioxide (21-32) mmol/L Anion Gap (3-11) BUN (6-23) mg/dl Creatinine (0.6-1.2) mg/dl Est Cr Clr Drug Dosing Est GFR ( Amer) ml/min Est GFR (Non-Af Amer) ml/min BUN/Creatinine Ratio (10-20) Glucose (70-99(Fasting)) mg/dl Lactate (0.4-2.0) mmol/L Calcium (8.5-10.1) mg/dl Total Bilirubin (0.2-1.0) mg/dl AST (13-39) U/L ALT (7-52) U/L Alkaline Phosphatase (34-104) U/L Total Protein (6.0-8.3) gm/dl Albumin (3.4-5.0) gm/dl Globulin (2.5-4.0) gm/dl Albumin/Globulin Ratio (0.9-2) SARS-CoV-2, RNA, NAAT (NEGATIVE)
--- NOTE | 2022-06-27 10:03 | XRay Report ---
KUB HISTORY: Small bowel obstruction. Follow-up. COMPARISON: KUB 06/26/2022. FINDINGS: Mildly dilated gas-filled loop of small bowel within the left mid abdomen again noted. This measures up to 3.9 cm in diameter. Surgical clips again noted within the epigastric region. No renal calculi. No ureteral calculi. No pneumoperitoneum or pneumatosis. IMPRESSION: No change in the mildly dilated gas-filled loop of small bowel within the left midabdomen likely juan pablo esponding to the patient's known small bowel obstruction. ACT 112: Negative or not required by law. Electronically signed by: Freddy Vazquez M.D. 06/27/2022 10:01 AM
[2022-06-27 10:22] LABS: BUN Creatinine Ratio 18.9 (10-20); Calcium 8.5 mg/dl (8.5-10.1); Creatinine Clr Calc Pharmacy 77.1 ml/min; Est GFR (African American) 106.9 ml/min; Est GFR (Non-African American) 92.2 ml/min; Potassium 3.5 mmol/L (3.5-5.1)
[2022-06-27] MEDS ORDERED: DEXTROSE 50% 50 ML SYRINGE IV STA (10:39)
--- NOTE | 2022-06-27 11:46 | Fluoroscopy Report ---
FL small bowel follow through CLINICAL HISTORY: SBO TECHNIQUE: Flight Follower images were obtained. The patient drank barium followed by serial abdominal xray travis ges. FINDINGS: Small bowel loops are normal in caliber and position. The terminal ileum was visualized and appeared grossly unremarkable. IMPRESSION: Normal small bowel follow through. ACT 112: Negative or not required by law. Electronically signed by: Alan Alcala M.D. 06/27/2022 11:44 AM
[2022-06-27] MEDS: D5NSS + 20MEQ KCL 20 MEQ/1,000 ML BAG IV SCH ×2 (11:49→22:21)
--- NOTE | 2022-06-27 16:51 | Hospitalist Progress Note ---
Date of Service June 27, 2022 Assessment & Plan (1) SBO (small bowel obstruction): Plan: Admitting service notes with addendum: Multiple surgeries in the past with probable scar tissue causing obstruction. She is still having pain and intermittent nausea but no bilious vomiting. No need for NG tube immediately. Will obtain KUB and consult General Surgery. For now continue with pain medication as needed with attempt to try and avoid narcotics to prevent additional bowel slowing, antiemetics as needed and NPO with ice chips only. 06/27 Discussed with general surgery service Plan for small bowel follow-through today Continue bowel rest, IV fluids As needed IV morphine for severe pain added Continue to monitor closely (2) Hypothyroidism: Plan: chronic, stable. Cont synthroid per home regimen. (3) COPD (chronic obstructive pulmonary disease): Plan: Lifelong smoker who is still actively smoking and is not interested in quitting at this time. Reports she stopped taking Advair on her own because she felt she was better and didn't need it. There is currently no wheezing and she appears stable. She declines nicotine patch. Smoking cessation advised. 06/27 Not in exacerbation (4) Anxiety: Plan: chronic, controlled with Ativan twice daily. Confirmed this in PDMP. (5) GERD (gastroesophageal reflux disease): Plan: severe, she is prescribed omeprazole but doesn't take it. She prefers Pepcid 50mg twice daily. Otherwise stable. (6) DVT prophylaxis: Plan: Full Code confirmed with her on admission. Dispo- to home when able to tolerate PO. Patient is a recent and lives alone. Additionally, she reports taking Percocet regularly, but PDMP reveals she is not prescribed this so it was removed from her home medication list. Admission and Anticipated Discharge Date Admission Date: June 26, 2022 Subjective Follow-up for small bowel obstruction, etc. Seen resting in bed, comfortable, not in distress States she still has ongoing mid abdominal pain No nausea or vomiting today No flatus yet or BMs No fevers or chills no chest pain, dyspnea, palpitations, dizziness No other symptoms Review of Systems Review of Systems: all noted and negative except for above Physical Exam Physical Exam: General- oriented x 3, not in distress, speaks in sentences with no effort or accessory muscle use Eyes- anicteric Neck- no JVD Lungs- clear breath sounds bilaterally, no rales/wheezes Heart- normal rate, regular rhythm; no murmurs Abdomen- normal bowel sounds, nondistended, soft, mild tenderness on the center of the abdomen Extremities- no pretibial edema, no calf tenderness Neuro- alert, oriented x 3; no gross focal neurologic deficits Skin- warm & dry Results & Data Results & Data ([facility]) Vital Signs (Past 12 Hours) Vital Signs Temp Pulse Resp BP Pulse Ox O2 Del Method 06/27/22 16:08 36.3 C L 76 18 137/62 95 Room Air 06/27/22 08:19 36.4 C L 85 18 133/76 98 Room Air all noted and reviewed including below
[2022-06-27] MEDS: MoRPHine SULFATE 2 MG/ML CARP IV PRN (20:18)
[2022-06-28] MEDS: MoRPHine SULFATE 2 MG/ML CARP IV PRN ×2 (03:29→20:30)
[2022-06-28] MEDS: LEVOTHYROXINE SODIUM 50 MCG TABLET PO SCH (05:39)
--- NOTE | 2022-06-28 05:55 | Surgery Progress Note ---
Date of Service June 28, 2022 Assessment & Plan (1) SBO (small bowel obstruction): Plan: Patient has been admitted on the hospitalist service: Small bowel follow-through did not show evidence of small bowel obstruction on 06/27/2022 Diet has been advanced to clears and his lungs patient continues to tolerate this consideration can be given to further advancing her diet Patient has an extensive surgical history and if deterioration is noted and surgery is required she would require transfer to a tertiary care center Admission and Anticipated Discharge Date Admission Date: June 26, 2022 Supervising Physician Co-Signing Physician Notes As per Thien Durham physician apartment community assistant manager Subjective Patient is resting comfortably in bed. She denies abdominal pain. She denies any nausea or vomiting. She notes that her bowels have been working over the past 12 hours. Physical Exam Gastrointestinal (Abdomen): Abdomen is soft, nontender, and nondistended. Results & Data ([facility]) Vital Signs (Past 12 Hours) Vital Signs Temp Pulse Resp BP Pulse Ox O2 Del Method 06/27/22 21:00 Room Air 06/27/22 21:31 36.5 C 80 12 125/75 96 Room Air PG Care Time/CCT Total # of Minutes Spent Total Time Spent with Patient: Total time spent is greater than 50% in coordination of care (as documented) at patient's floor/unit and/or counseling patient: Coding Level of Care Code 80573 Subseq Hosp Care Lvl 1 Diagnoses SBO (small bowel obstruction) K56.609
[2022-06-28] MEDS: D5NSS + 20MEQ KCL 20 MEQ/1,000 ML BAG IV SCH ×2 (07:26→16:41)
[2022-06-28] MEDS: ROSUVASTATIN CALCIUM 20 MG TAB PO SCH (08:32)
[2022-06-28] MEDS: FAMOTIDINE 40 MG TABLET PO SCH ×2 (08:32→20:30)
[2022-06-28] MEDS: DULoxetine HCL 60 MG CAP PO SCH (08:32)
[2022-06-28] MEDS: GABAPENTIN 800 MG TAB PO SCH ×3 (08:32→20:30)
[2022-06-28] MEDS: NICOTINE 21 MG/24 HR TDSY TD SCH (08:32)
[2022-06-28 10:46] LABS: BUN Creatinine Ratio 11.1 (10-20); Calcium 8.4 mg/dl (8.5-10.1); Creatinine Clr Calc Pharmacy 75.7 ml/min; Est GFR (African American) 106.2 ml/min; Est GFR (Non-African American) 91.7 ml/min; Potassium 4.1 mmol/L (3.5-5.1)
--- NOTE | 2022-06-28 16:19 | Hospitalist Progress Note ---
Date of Service June 28, 2022 Assessment & Plan (1) SBO (small bowel obstruction): Plan: Admitting service notes with addendum: Multiple surgeries in the past with probable scar tissue causing obstruction. She is still having pain and intermittent nausea but no bilious vomiting. No need for NG tube immediately. Will obtain KUB and consult General Surgery. For now continue with pain medication as needed with attempt to try and avoid narcotics to prevent additional bowel slowing, antiemetics as needed and NPO with ice chips only. 06/27 Discussed with general surgery service Plan for small bowel follow-through today Continue bowel rest, IV fluids As needed IV morphine for severe pain added Continue to monitor closely 06/28 Positive BMs, GI symptoms improving Diet advanced to clear liquids Continue IV fluids Continue to monitor (2) Hypothyroidism: Plan: chronic, stable. Cont synthroid per home regimen. (3) COPD (chronic obstructive pulmonary disease): Plan: Lifelong smoker who is still actively smoking and is not interested in quitting at this time. Reports she stopped taking Advair on her own because she felt she was better and didn't need it. There is currently no wheezing and she appears stable. She declines nicotine patch. Smoking cessation advised. Not in exacerbation (4) Anxiety: Plan: chronic, controlled with Ativan twice daily. Confirmed this in PDMP. (5) GERD (gastroesophageal reflux disease): Plan: severe, she is prescribed omeprazole but doesn't take it. She prefers Pepcid 50mg twice daily. Otherwise stable. (6) DVT prophylaxis: Plan: Full Code confirmed with her on admission. Dispo- to home when able to tolerate PO. Patient is a recent and lives alone. Additionally, she reports taking Percocet regularly, but PDMP reveals she is not prescribed this so it was removed from her home medication list. Admission and Anticipated Discharge Date Admission Date: June 26, 2022 Subjective Follow-up for small bowel obstruction, etc. Seen resting in bed, comfortable, not in distress States she feels better today compared to yesterday Minimal abdominal pain, no nausea vomiting Positive BMs Diet advanced to clear liquids Tolerating so far No other symptom Review of Systems Review of Systems: all noted and negative except for above Physical Exam Physical Exam: General- oriented x 3, not in distress, speaks in sentences with no effort or accessory muscle use Eyes- anicteric Neck- no JVD Lungs- clear breath sounds bilaterally, no rales/wheezes Heart- normal rate, regular rhythm; no murmurs Abdomen- normal bowel sounds, nondistended, soft, minimal tenderness in the upper quadrants Extremities- no pretibial edema, no calf tenderness Neuro- alert, oriented x 3; no gross focal neurologic deficits Skin- warm & dry Results & Data Results & Data ([facility]) Vital Signs (Past 12 Hours) Vital Signs Temp Pulse Resp BP Pulse Ox O2 Del Method 06/28/22 16:00 36.4 C L 79 18 129/88 97 Room Air 06/28/22 08:17 36.4 C L 70 18 115/72 98 Room Air all noted and reviewed including below
[2022-06-28] MEDS: LORazepam 0.5 MG TAB PO PRN (20:30)
[2022-06-29] MEDS: D5NSS + 20MEQ KCL 20 MEQ/1,000 ML BAG IV SCH (03:14)
--- NOTE | 2022-06-29 04:57 | Surgery Progress Note ---
Date of Service June 29, 2022 Assessment & Plan (1) SBO (small bowel obstruction): Plan: Patient has been admitted on the hospitalist service: Small bowel follow-through on 06/27/2022 did not show evidence of small bowel obstruction Patient is currently tolerating clear liquids. Consideration be given to advancing diet further. Patient has an extensive surgical history and if deterioration is noted and surgery is required she would require transfer to a tertiary care center Admission and Anticipated Discharge Date Admission Date: June 26, 2022 Supervising Physician Co-Signing Physician Notes As per Thien Durham physician photo studio assistant Will increase diet to low fiber continue that as an outpatient If patient tolerates diet she can be discharged no need to follow-up with us can follow-up with primary physician unless new issues arise Subjective Patient is resting comfortably in bed. She is tolerating clear liquids. She denies any nausea or vomiting and notes that her bowels continue to move. She notes that she feels hungry. She has minimal to no abdominal pain. Physical Exam Gastrointestinal (Abdomen): Abdomen is soft, nondistended, and nontender to palpation. Bowel sounds are present Results & Data ([facility]) Vital Signs (Past 12 Hours) Vital Signs Temp Pulse Resp BP Pulse Ox O2 Del Method 06/28/22 21:00 Room Air 06/28/22 22:15 36.5 C 75 16 121/76 94 Room Air PG Care Time/CCT Total # of Minutes Spent Total Time Spent with Patient: Total time spent is greater than 50% in coordination of care (as documented) at patient's floor/unit and/or counseling patient: Coding Level of Care Code 13863 Subseq Hosp Care Lvl 1 Diagnoses SBO (small bowel obstruction) K56.609
[2022-06-29] MEDS: LEVOTHYROXINE SODIUM 50 MCG TABLET PO SCH (05:41)
[2022-06-29] MEDS: GABAPENTIN 800 MG TAB PO SCH ×3 (08:20→20:17)
[2022-06-29] MEDS: NICOTINE 21 MG/24 HR TDSY TD SCH (08:20)
[2022-06-29] MEDS: FAMOTIDINE 40 MG TABLET PO SCH ×2 (08:20→20:16)
[2022-06-29] MEDS: DULoxetine HCL 60 MG CAP PO SCH (08:20)
[2022-06-29] MEDS: ROSUVASTATIN CALCIUM 20 MG TAB PO SCH (08:21)
[2022-06-29] MEDS ORDERED: ERGOCALCIFEROL 50,000 UNITS 1250 MCG CAP PO SCH (09:00)
[2022-06-29] MEDS: MoRPHine SULFATE 2 MG/ML CARP IV PRN ×2 (14:11→20:17)
--- NOTE | 2022-06-29 16:20 | Hospitalist Progress Note ---
Date of Service June 29, 2022 Assessment & Plan (1) SBO (small bowel obstruction): Plan: Admitting service notes with addendum: Multiple surgeries in the past with probable scar tissue causing obstruction. She is still having pain and intermittent nausea but no bilious vomiting. No need for NG tube immediately. Will obtain KUB and consult General Surgery. For now continue with pain medication as needed with attempt to try and avoid narcotics to prevent additional bowel slowing, antiemetics as needed and NPO with ice chips only. 06/27 Discussed with general surgery service Plan for small bowel follow-through today Continue bowel rest, IV fluids As needed IV morphine for severe pain added Continue to monitor closely 06/28 Positive BMs, GI symptoms improving Diet advanced to clear liquids Continue IV fluids Continue to monitor 06/29 In the afternoon, patient developed nausea and abdominal pain again Discussed with general surgery Return to clear liquids CT abdomen ordered (2) Hypothyroidism: Plan: chronic, stable. Cont synthroid per home regimen. (3) COPD (chronic obstructive pulmonary disease): Plan: Lifelong smoker who is still actively smoking and is not interested in quitting at this time. Reports she stopped taking Advair on her own because she felt she was better and didn't need it. There is currently no wheezing and she appears stable. She declines nicotine patch. Smoking cessation advised. Not in exacerbation (4) Anxiety: Plan: chronic, controlled with Ativan twice daily. Confirmed this in PDMP. (5) GERD (gastroesophageal reflux disease): Plan: severe, she is prescribed omeprazole but doesn't take it. She prefers Pepcid 50mg twice daily. Otherwise stable. (6) DVT prophylaxis: Plan: Full Code confirmed with her on admission. Dispo- to home when able to tolerate PO. Patient is a recent and lives alone. Additionally, she reports taking Percocet regularly, but PDMP reveals she is not prescribed this so it was removed from her home medication list. Admission and Anticipated Discharge Date Admission Date: June 26, 2022 Subjective For small bowel obstruction, etc. Seen in the morning Patient sitting up in bed, comfortable, in good spirits States she feels fine overall Able to tolerate soft diet for breakfast No abdominal pain, nausea vomiting In the afternoon, patient developed nausea and abdominal pain again Discussed with general surgery Return to clear liquids CT abdomen ordered Review of Systems Review of Systems: all noted and negative except for above Physical Exam Physical Exam: General- oriented x 3, not in distress, speaks in sentences with no effort or accessory muscle use Eyes- anicteric Neck- no JVD Lungs- clear breath sounds bilaterally, no crackles, no wheeze Heart- normal rate, regular rhythm; no murmurs Abdomen- normal bowel sounds, nondistended, soft, no tenderness Extremities- no pretibial edema, no calf tenderness Neuro- alert, oriented x 3; no gross focal neurologic deficits Skin- warm & dry Results & Data Results & Data ([facility]) Vital Signs (Past 12 Hours) Vital Signs Temp Pulse Resp BP Pulse Ox O2 Del Method 06/29/22 08:30 36.3 C L 75 18 127/81 97 Room Air all noted and reviewed including below
[2022-06-29] MEDS ORDERED: LACTATED RINGER'S 1,000 ML IV SCH (17:15)
--- NOTE | 2022-06-29 18:25 | CT Scan Report ---
CT SCAN OF THE ABDOMEN AND PELVIS WITHOUT IV CONTRAST CLINICAL HISTORY: Follow-up small bowel obstruction. COMPARISON STUDY: Abdominal CT dated 06/25/2022. Small bowel follow-through dated 06/27/2022. TECHNIQUE: CT scan of the abdomen and pelvis is performed from the lung bases to the proximal femora. Images are reviewed in the axial, sagittal, and coronal planes. IV contrast was not administered for this examination as per the referring clinician. Note that the examination was performed in suboptim al fashion without oral and IV contrast. A dose lowering technique was utilized adhering to the princ iplnasim of JANELLE. CT DOSE: 268.43 mGy.cm FINDINGS: Lung bases: The heart is enlarged and without pericardial effusion. There is diminished attenuation o f the cardiac blood pool as compared to the myocardium suggesting anemia. There is a small left pleur al effusion which appears at least partially loculated. There is airspace consolidation at the left l abdirizak base. Trace pleural effusion is seen in the right lung base. Interlobular septal thickening is no kenzie. Liver: The unenhanced liver is normal in size, contour, and attenuation. There is mild intrahepatic b iliary ductal dilatation. Gallbladder: Surgically absent. Spleen: Normal in size and attenuation. Pancreas: The unenhanced pancreas is atrophic and grossly unremarkable. Adrenal glands: Unremarkable. Kidneys: The unenhanced kidneys demonstrate cortical atrophy and are without hydronephrosis. There ar e no renal calculi identified. There is no evidence of contour deforming renal mass lesion. Abdominal vasculature: The abdominal aorta is normal in course and caliber noting moderate atheroscle rotic calcification. Bowel: Residual enteric contrast is seen throughout the colon. No bowel obstruction is identified. Th ere are mildly thick-walled and distended loops of distal ileum seen on image #255. There is focal na rrowing of the distal/terminal ileum seen on image #225. This is unchanged from previous and a strict ure is not excluded. A small bowel anastomosis is seen in the left mid abdomen. The appendix is not identified and reported surgically absent. Peritoneum: There is a small volume of abdominopelvic ascites. No acute peritoneal free air is identi fied. Mesenteric edema is noted. Lymphadenopathy: None. Pelvic viscera: The bladder is mildly distended but otherwise normal in appearance. The uterus is atr ophic versus surgically absent. No adnexal lesion is seen. Skeletal structures: The skeletal structures are osteopenic. There is a mild chronic superior end ghislaine te compression deformity of L4. Moderate lumbosacral spondylosis is observed. No lytic or blastic les ions are seen. Soft tissues: There is anasarca of the body wall. IMPRESSION: 1. There is no bowel obstruction. 2. There are mildly thick-walled loops of distal ileum. Correlate clinically for evidence of a nonspe cific enteritis. 3. There is focal narrowing of the distal/terminal ileum. This is similar to previous and underlying stricture is not excluded. 4. Cardiomegaly with evidence of fluid overload/congestive failure. Pleural effusions are new from . 5. There is a small volume of abdominopelvic ascites, diffuse mesenteric edema, and body wall edema. This is likely related to fluid overload/congestive failure. Clinical correlation will be essential. 6. Consolidation is seen at the left lung base. This could represent atelectasis versus pneumonia/asp iration pneumonitis. Clinical correlation will be required. 7. Additional findings as above. ACT 112: Negative or not required by law. Electronically signed by: Clark Kaur M.D. 06/29/2022 6:23 PM
[2022-06-29] MEDS: LORazepam 0.5 MG TAB PO PRN (20:16)
[2022-06-30] MEDS: LEVOTHYROXINE SODIUM 50 MCG TABLET PO SCH (05:25)
[2022-06-30] MEDS: NICOTINE 21 MG/24 HR TDSY TD SCH (08:54)
[2022-06-30] MEDS: FAMOTIDINE 40 MG TABLET PO SCH (08:55)
[2022-06-30] MEDS: GABAPENTIN 800 MG TAB PO SCH ×2 (08:55→13:26)
[2022-06-30] MEDS: DULoxetine HCL 60 MG CAP PO SCH (08:55)
[2022-06-30] MEDS: ROSUVASTATIN CALCIUM 20 MG TAB PO SCH (08:55)
--- NOTE | 2022-06-30 09:46 | Surgery Progress Note ---
Date of Service June 30, 2022 Assessment & Plan (1) SBO (small bowel obstruction): Plan: Patient has been admitted on the hospitalist service: Small bowel follow-through on 06/27/2022 did not show evidence of small bowel obstruction CT scan normal; tolerating diet; may be d/c to home from surgical standpoint Admission and Anticipated Discharge Date Admission Date: June 26, 2022 Subjective doing well; having BMs; no further nausea Physical Exam Gastrointestinal (Abdomen): Inspection/Auscultation: abdomen normal to inspection and + abdominal surgical scar (midline laparotomy scar); abdomen not distended Percussion/Palpation: abdomen soft; abdomen not firm Results & Data ([facility]) Vital Signs (Past 12 Hours) Vital Signs Temp Pulse Resp BP Pulse Ox O2 Del Method 06/30/22 07:40 36.4 C L 77 16 133/80 93 Room Air
--- NOTE | 2022-06-30 11:59 | Hospitalist Progress Note ---
Date of Service June 30, 2022 Assessment & Plan (1) SBO (small bowel obstruction): Plan: Admitting service notes with addendum: Multiple surgeries in the past with probable scar tissue causing obstruction. She is still having pain and intermittent nausea but no bilious vomiting. No need for NG tube immediately. Will obtain KUB and consult General Surgery. For now continue with pain medication as needed with attempt to try and avoid narcotics to prevent additional bowel slowing, antiemetics as needed and NPO with ice chips only. 06/27 Discussed with general surgery service Plan for small bowel follow-through today Continue bowel rest, IV fluids As needed IV morphine for severe pain added Continue to monitor closely 06/28 Positive BMs, GI symptoms improving Diet advanced to clear liquids Continue IV fluids Continue to monitor 06/29 In the afternoon, patient developed nausea and abdominal pain again Discussed with general surgery Return to clear liquids CT abdomen ordered 1. There is no bowel obstruction. 2. There are mildly thick-walled loops of distal ileum. Correlate clinically for evidence of a nonspecific enteritis. 3. There is focal narrowing of the distal/terminal ileum. This is similar to previous and underlying stricture is not excluded. 4. Cardiomegaly with evidence of fluid overload/congestive failure. Pleural effusions are new from 06/25/2022. 5. There is a small volume of abdominopelvic ascites, diffuse mesenteric edema, and body wall edema. This is likely related to fluid overload/congestive failure. Clinical correlation will be essential. 6. Consolidation is seen at the left lung base. This could represent atelectasis versus pneumonia/aspiration pneumonitis. Clinical correlation will be required. 7. Additional findings as above. ACT 112: Negative or not required by law. 06/30 Patient clinically much better No abdominal pain, positive BMs, tolerating diet well Cleared for discharge to home by general surgery Referred to GI for focal narrowing of the distal/terminal ileum (2) Consolidation of left lower lobe of lung: Plan: Patient afebrile Leukocytosis Had dry cough on admission CT chest showing dense left lower lobe consolidation versus atelectasis Empiric Augmentin 875 twice daily and doxycycline 100 mg twice daily with probiotics x3 weeks Incentive spirometry at home also ordered Repeat imaging chest x-ray or CT chest in 4 weeks to ensure resolution (3) Hypothyroidism: Plan: chronic, stable. Cont synthroid per home regimen. (4) COPD (chronic obstructive pulmonary disease): Plan: Lifelong smoker who is still actively smoking and is not interested in quitting at this time. Reports she stopped taking Advair on her own because she felt she was better and didn't need it. There is currently no wheezing and she appears stable. She declines nicotine patch. Smoking cessation advised. Not in exacerbation (5) Anxiety: Plan: chronic, controlled with Ativan twice daily. Confirmed this in PDMP. (6) GERD (gastroesophageal reflux disease): Plan: prefers Pepcid 50mg twice daily (7) DVT prophylaxis: Plan: Full Code confirmed with her on admission. Dispo- Discharge to home Follow-up with PCP in 1 week Admission and Anticipated Discharge Date Admission Date: June 26, 2022 Subjective Follow-up for small bowel obstruction, etc. Seen resting in bed, comfortable, not in distress In good spirits States she feels fine overall No abdominal pain, nausea vomiting anymore No fevers or chills Positive BM yesterday no chest pain, dyspnea, palpitations, dizziness Ambulating with no problems No other symptoms States she is ready and would like to be discharged today if possible Review of Systems Review of Systems: all noted and negative except for above Physical Exam Physical Exam: General- oriented x 3, not in distress, speaks in sentences with no effort or accessory muscle use Eyes- anicteric Neck- no JVD Lungs- clear breath sounds bilaterally, no crackles, no rales no wheezing Heart- normal rate, regular rhythm; no murmurs Abdomen- normal bowel sounds, nondistended, soft, no tenderness in all quadrant Extremities- no pretibial edema, no calf tenderness Neuro- alert, oriented x 3; no gross focal neurologic deficits Skin- warm & dry Results & Data Results & Data ([facility]) Vital Signs (Past 12 Hours) Vital Signs Temp Pulse Resp BP Pulse Ox O2 Del Method 06/30/22 07:40 36.4 C L 77 16 133/80 93 Room Air all noted and reviewed including below
--- NOTE | 2022-06-30 14:07 | Discharge Summary ---
Discharge Summary Date of Service June 30, 2022 Notes For Next Care Provider Possible left lower lobe pneumonia on CT abdomen and pelvis Augmentin and doxycycline ordered Repeat chest x-ray or CT chest in 4 weeks to ensure resolution Medication Changes From Visit Augmentin 875 mg p.o. twice daily Doxycycline 100 mg p.o. twice daily Admission HPI Per Admitting Provider This is a 76-year-old female with PMH of COPD, chronic systolic heart failure, hypertension, hypothyroidism Abdominal pain started on since thursday where she had bloating in her abdomen and constipation. She developed severe pain and went to the ER on Thu but was sent home with antibiotics and report that she had a UTI. She denies any UTI symptoms and repeat UA was clear from 06/25 hospital records. Abdominal pain brought her back to the ER yesterday. Pain is generalized but mostly on the left and has a burning quality. Took laxatives yesterday, finally had a BM today and there was pain associated with it. Stool was black in color. Nausea and dry heaving two days ago. She hasn't eaten since Thursday. She denies fevers and reports chills and a dry cough that seems to have resolved. Today she is hungry but still has abdominal pain. She still gets nausea but has not been actively vomiting. Admission Exam Per Admitting Provider CONSTITUTIONAL: thin, vitals as above, generally well-appearing, NAD EYES: pupils are round, dilated and equal and reactive bilaterally, normal conjunctivae, no scleral icterus ENT: external ear and nose normal, oropharynx clear NECK: trachea midline RESPIRATORY: clear to auscultation bilaterally, no crackles, rales or wheezes, normal respiratory effort CARDIOVASCULAR: regular rate and rhythm, S1 and 2 heard without murmurs, gallops or rubs, no JVD, no peripheral edema GASTROINTESTINAL: hypoactive BS, soft, diffusely TTP, +guarding. MUSCULOSKELETAL: strength 5/5 throughout, head is normocephalic and atraumatic SKIN: warm and dry NEUROLOGIC: CN 2-12 grossly intact, no sensory deficit, normal cognition, normal speech, no tremor PSYCHIATRIC: alert cooperative and oriented to person, place and time. Principal Dx & Hospital Course #1 = Principal Diagnosis (1) SBO (small bowel obstruction): (1) SBO (small bowel obstruction): Plan: Admitting service notes with addendum: Multiple surgeries in the past with probable scar tissue causing obstruction. She is still having pain and intermittent nausea but no bilious vomiting. No need for NG tube immediately. Will obtain KUB and consult General Surgery. For now continue with pain medication as needed with attempt to try and avoid narcotics to prevent additional bowel slowing, antiemetics as needed and NPO with ice chips only. General surgery consulted Small bowel follow-through:Normal small bowel follow through. Conservative management including bowel rest, IV fluids, pain medications recommended Patient gradually improved Positive BMs, tolerating diet well Follow-up CT abdomen pelvis: 1. There is no bowel obstruction. 2. There are mildly thick-walled loops of distal ileum. Correlate clinically for evidence of a nonspecific enteritis. 3. There is focal narrowing of the distal/terminal ileum. This is similar to previous and underlying stricture is not excluded. 4. Cardiomegaly with evidence of fluid overload/congestive failure. Pleural effusions are new from 06/25/2022. 5. There is a small volume of abdominopelvic ascites, diffuse mesenteric edema, and body wall edema. This is likely related to fluid overload/congestive failure. Clinical correlation will be essential. 6. Consolidation is seen at the left lung base. This could represent atelectasis versus pneumonia/aspiration pneumonitis. Clinical correlation will be required. 7. Additional findings as above. ACT 112: Negative or not required by law. 06/30 Patient clinically much better No abdominal pain, positive BMs, tolerating diet well Cleared for discharge to home by general surgery Referred to GI for focal narrowing of the distal/terminal ileum (2) Consolidation of left lower lobe of lung: Plan: Patient afebrile Leukocytosis Had dry cough on admission CT chest showing dense left lower lobe consolidation versus atelectasis Empiric Augmentin 875 twice daily and doxycycline 100 mg twice daily with probiotics x3 weeks Incentive spirometry at home also ordered Repeat imaging chest x-ray or CT chest in 4 weeks to ensure resolution (3) Hypothyroidism: Plan: chronic, stable. Cont synthroid per home regimen. (4) COPD (chronic obstructive pulmonary disease): Plan: Lifelong smoker who is still actively smoking and is not interested in quitting at this time. Reports she stopped taking Advair on her own because she felt she was better and didn't need it. There is currently no wheezing and she appears stable. She declines nicotine patch. Smoking cessation advised. Not in exacerbation (5) Anxiety: Plan: chronic, controlled with Ativan twice daily. Confirmed this in PDMP. (6) GERD (gastroesophageal reflux disease): Plan: prefers Pepcid 50mg twice daily (7) DVT prophylaxis: Plan: Full Code confirmed with her on admission. Dispo- Discharge to home Follow-up with PCP in 1 week Discharge Exam General- oriented x 3, not in distress, speaks in sentences with no effort or accessory muscle use Eyes- anicteric Neck- no JVD Lungs- clear breath sounds bilaterally, no crackles, no rales no wheezing Heart- normal rate, regular rhythm; no murmurs Abdomen- normal bowel sounds, nondistended, soft, no tenderness in all quadrant Extremities- no pretibial edema, no calf tenderness Neuro- alert, oriented x 3; no gross focal neurologic deficits Skin- warm & dry Updated Medication List Medication Instructions Recorded Confirmed Type cyclobenzaprine 10 mg tablet 10 mg PO BID PRN muscle spasm 06/26/22 06/26/22 History duloxetine 60 mg capsule,delayed 60 mg PO DAILY 06/26/22 06/26/22 History release ergocalciferol (vitamin D2) 1,250 50,000 unit PO JACOB@0900 06/26/22 06/26/22 History mcg (50,000 unit) capsule (Vitamin D2) famotidine 40 mg tablet 40 mg PO BID 06/26/22 06/26/22 History ferrous sulfate 325 mg (65 mg 325 mg PO BID 06/26/22 06/26/22 History iron) tablet (FeroSul) furosemide 40 mg tablet (Lasix) 40 mg PO DAILY PRN SWELLING 06/26/22 06/26/22 History gabapentin 800 mg tablet 800 mg PO TID 06/26/22 06/26/22 History levothyroxine 50 mcg tablet 50 mcg PO DAILYBB 06/26/22 06/26/22 History lorazepam 0.5 mg tablet 0.5 mg PO BID PRN Anxiety 06/26/22 06/26/22 History rosuvastatin 20 mg tablet 20 mg PO DAILY 06/26/22 06/26/22 History amoxicillin 875 mg-potassium 1 tab PO BID 7 days #14 tabs 06/30/22 Rx clavulanate 125 mg tablet doxycycline hyclate 100 mg capsule 100 mg PO BID 7 days #14 caps 06/30/22 Rx Hospital Stay Data Consultations 06/26/22 11:31 Consult General Surgery Routine Diagnostic Imagining Performed Chest X-Ray 06/26/22 11:45 XR chest 1V portable HISTORY: 76 years-old Female cough, smoker acute cough COMPARISON: KUB of same day, chest radiograph 06/25/2022 TECHNIQUE: AP view of the chest FINDINGS: Cardiac silhouette is enlarged. Loop recorder device. No pneumothorax, large pleural effusion or lobar airspace consolidation. Chronic interstitial coarsening of the lung bases. Degenerative changes of the shoulders and spine. IMPRESSION: Cardiomegaly without acute process. ACT 112: Negative or not required by law. The above report was generated using voice recognition software. It may contain grammatical, syntax or spelling errors. Electronically signed by: Abdullahi Nino M.D. 06/26/2022 12:22 PM KUB X-Ray 06/27/22 09:08 KUB HISTORY: Small bowel obstruction. Follow-up. COMPARISON: KUB 06/26/2022. FINDINGS: Mildly dilated gas-filled loop of small bowel within the left mid abdomen again noted. This measures up to 3.9 cm in diameter. Surgical clips again noted within the epigastric region. No renal calculi. No ureteral calculi. No pneumoperitoneum or pneumatosis. IMPRESSION: No change in the mildly dilated gas-filled loop of small bowel within the left midabdomen likely corresponding to the patient's known small bowel obstruction. ACT 112: Negative or not required by law. Electronically signed by: Freddy Vazquez M.D. 06/27/2022 10:01 AM Small Bowel X-Ray 06/27/22 10:20 FL small bowel follow through CLINICAL HISTORY: SBO TECHNIQUE: [employer] images were obtained. The patient drank barium followed by serial abdominal xray images. FINDINGS: Small bowel loops are normal in caliber and position. The terminal ileum was visualized and appeared grossly unremarkable. IMPRESSION: Normal small bowel follow through. ACT 112: Negative or not required by law. Electronically signed by: Alan Alcala M.D. 06/27/2022 11:44 AM Abdomen/Pelvis CT 06/29/22 14:29 CT SCAN OF THE ABDOMEN AND PELVIS WITHOUT IV CONTRAST CLINICAL HISTORY: Follow-up small bowel obstruction. COMPARISON STUDY: Abdominal CT dated 06/25/2022. Small bowel follow-through dated 06/27/2022. TECHNIQUE: CT scan of the abdomen and pelvis is performed from the lung bases to the proximal femora. Images are reviewed in the axial, sagittal, and coronal planes. IV contrast was not administered for this examination as per the referring clinician. Note that the examination was performed in suboptimal fashion without oral and IV contrast. A dose lowering technique was utilized adhering to the principles of ALARA. CT DOSE: 268.43 mGy.cm FINDINGS: Lung bases: The heart is enlarged and without pericardial effusion. There is diminished attenuation of the cardiac blood pool as compared to the myocardium suggesting anemia. There is a small left pleural effusion which appears at least partially loculated. There is airspace consolidation at the left lung base. Trace pleural effusion is seen in the right lung base. Interlobular septal thickening is noted. Liver: The unenhanced liver is normal in size, contour, and attenuation. There is mild intrahepatic biliary ductal dilatation. Gallbladder: Surgically absent. Spleen: Normal in size and attenuation. Pancreas: The unenhanced pancreas is atrophic and grossly unremarkable. Adrenal glands: Unremarkable. Kidneys: The unenhanced kidneys demonstrate cortical atrophy and are without hydronephrosis. There are no renal calculi identified. There is no evidence of contour deforming renal mass lesion. Abdominal vasculature: The abdominal aorta is normal in course and caliber noting moderate atherosclerotic calcification. Bowel: Residual enteric contrast is seen throughout the colon. No bowel obstruction is identified. There are mildly thick-walled and distended loops of distal ileum seen on image #255. There is focal narrowing of the distal/terminal ileum seen on image #225. This is unchanged from previous and a stricture is not excluded. A small bowel anastomosis is seen in the left mid abdomen. The appendix is not identified and reported surgically absent. Peritoneum: There is a small volume of abdominopelvic ascites. No acute peritoneal free air is identified. Mesenteric edema is noted. Lymphadenopathy: None. Pelvic viscera: The bladder is mildly distended but otherwise normal in appearance. The uterus is atrophic versus surgically absent. No adnexal lesion is seen. Skeletal structures: The skeletal structures are osteopenic. There is a mild chronic superior end plate compression deformity of L4. Moderate lumbosacral spondylosis is observed. No lytic or blastic lesions are seen. Soft tissues: There is anasarca of the body wall. IMPRESSION: 1. There is no bowel obstruction. 2. There are mildly thick-walled loops of distal ileum. Correlate clinically for evidence of a nonspecific enteritis. 3. There is focal narrowing of the distal/terminal ileum. This is similar to previous and underlying stricture is not excluded. 4. Cardiomegaly with evidence of fluid overload/congestive failure. Pleural effusions are new from 06/25/2022. 5. There is a small volume of abdominopelvic ascites, diffuse mesenteric edema, and body wall edema. This is likely related to fluid overload/congestive failure. Clinical correlation will be essential. 6. Consolidation is seen at the left lung base. This could represent atelectasis versus pneumonia/aspiration pneumonitis. Clinical correlation will be required. 7. Additional findings as above. ACT 112: Negative or not required by law. Electronically signed by: Clark Kaur M.D. 06/29/2022 6:23 PM Pending Results Patient Have Any Pending Studies at Discharge: Yes Discharge Instructions Given to Patient (Per Discharging Provider) PLEASE REFER TO YOUR NEW MEDICATION LIST AND FOLLOW INSTRUCTIONS CAREFULLY. YOUR NEW MEDICATIONS INCLUDE: Augmentin- antibiotic for possible pneumonia Doxycycline- antibiotic for possible pneumonia Please take a probiotic daily ([employer] brand recommended) for at least 3 weeks. Drink plenty of water daily. Use incentive spirometry every 2-3 hours daily. Low fiber diet for at least 3-5 days. PLEASE CALL YOUR PRIMARY CARE PHYSICIAN OR RETURN TO THE ER IF WITH WORSENING OF SYMPTOMS, INCLUDING abdominal pain, nausea/vomiting, fever/chills, cough, shortness of breath, etc FOLLOW UP WITH PRIMARY CARE PHYSICIAN OUTLINED ABOVE. Total Time Total Time Spent Total Time Spent (In Minutes): >30 minutes
== END 2022-06-30 14:28 | disposition home or self-care (01) ==
LOC: SUATTDRO 10:15 → 3N 10:15 → INTOOBSV 10:15
DX: F17.210 Nicotine dependence, cigarettes, uncomplicated; Z79.899 Other long term (current) drug therapy; J44.9 Chronic obstructive pulmonary disease, unspecified; K21.9 Gastro-esophageal reflux disease without esophagitis; K56.609 Unspecified intestinal obstruction, unspecified as to partial versus complete obstruction; E03.9 Hypothyroidism, unspecified; D72.829 Elevated white blood cell count, unspecified; Z79.890 Hormone replacement therapy